=== PATIENT | female | born 1940 | race Caucasian/White ===

== ENCOUNTER → 2019-12-02 13:01 | Outpatient (CLI) | payer MEDICARE, SELFPAY ==
--- NOTE | ~2019-12-02 | DEXA_ITS ---
Bone Density Report Name: Bindu Trujillo Age: 79 Sex: Female Ethnicity: White Date of : 1940 Indication: osteopenia; height loss; postmenopausal Referring Provider: HARI GUILLEN Study: Bone densitometry was performed. Exam Date: December 02, 2019 Accession number: [id number] Bone Density: Region BMD T-score Z-score Classification AP Spine (L1-L4) 0.897 -1.4 1.3 Osteopenia Femoral Neck (Left) 0.774 -0.7 1.6 Normal Total Hip (Left) 0.928 -0.1 1.9 Normal Femoral Neck (Right) 0.778 -0.6 1.6 Normal Total Hip (Right) 0.890 -0.4 1.6 Normal Total Hip Mean 0.909 -0.3 1.8 Normal World Health Organization criteria for BMD impression classify patients as: Normal (T-score at or above -1.0), Osteopenia (T-score between -1.0 and -2.5), or Osteoporosis (T-score at or below -2.5). 10-year Fracture Risk(1): Major Osteoporotic Fracture 10% Hip Fracture 1.6% Reported Risk Factors: [place] (), Neck BMD=0.778, BMI=31.6 (1) FRAX(R) Version 3.08. Fracture probability calculated for an untreated patient. Fracture probability may be lower if the patient has received treatment. Previous Exams: Region Exam Age BMD T-score BMD Change BMD Change Date g/cm2 vs Baseline vs Previous AP Spine(L1-L4) 12/02/2019 79 0.897 -1.4 -0.007 -0.012 09/30/2017 77 0.908 -1.3 0.005 -0.023 09/25/2015 75 0.931 -1.1 0.028* 0.026* 08/03/2012 72 0.905 -1.3 0.002 -0.034* 05/17/2010 69 0.939 -1.0 0.036* 0.006 05/17/2010 69 0.933 -1.0 0.030* 0.044* 05/07/2008 67 0.889 -1.4 -0.015 -0.015 04/04/2006 65 0.903 -1.3 Total Hip(Left) 12/02/2019 79 0.928 -0.1 -0.092* -0.027 09/30/2017 77 0.954 0.1 -0.066* -0.046* 09/25/2015 75 1.000 0.5 -0.020 -0.042* 08/03/2012 72 1.042 0.8 0.022 -0.028* 05/17/2010 69 1.070 1.0 0.050* 0.050* 05/07/2008 67 1.020 0.6 Total Hip(Right) 12/02/2019 79 0.890 -0.4 -0.088* -0.039* 09/30/2017 77 0.929 -0.1 -0.049* -0.017 09/25/2015 75 0.946 0.0 -0.032* -0.057* 08/03/2012 72 1.003 0.5 0.025 -0.071* 05/17/2010 69 1.075 1.1 0.097* 0.097* 05/07/2008 67 0.978 0.3 *Denotes significance at 95% confidence level, [facility] for AP Spine = 0.022 g/cm2, [facility] for Total Hip = 0.027 g/cm2
--- NOTE | ~2019-12-02 | MM_ITS ---
EXAMINATION: MM screening louie BI w tami HISTORY: Screening mammogram TECHNIQUE: Craniocaudal and mediolateral oblique 3-D tomosynthesis images were obtained and synthetic 2-D images were generated. CAD analysis was submitted and interpreted. COMPARISON: Comparison to multiple prior studies sequentially, with oldest reviewed study dated 09/08. BREAST PARENCHYMAL COMPOSITION: There are scattered areas of fibroglandular density. FINDINGS: There is no evidence of suspicious mass, calcification, or architectural distortion to sugg est malignancy in either breast. There has been no suspicious interval change. IMPRESSION: 1. No mammographic evidence of malignancy. 2. Recommend routine screening mammography in one year. BI-RADS Category 1: Negative Reviewed, dictated and finalized at location A. 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
== END ==
PROVIDERS: PCP Family Medicine; Visit Provider Physician Assistant
DX: Z12.31 Encounter for screening mammogram for malignant neoplasm of breast (principal); Z78.0 Asymptomatic menopausal state; M85.88 Other specified disorders of bone density and structure, other site
CPT/HCPCS: 77063; 77067; 77080

== ENCOUNTER 2020-05-04 18:11 | Emergency (ER) | payer MEDICARE, SELFPAY ==
[2020-05-04 18:35] VITALS: BP 151/83; PULSE 72; RESP 16; TEMP 36.8; O2SAT 97
== END 2020-05-04 18:35 | disposition left against medical advice (07) ==
PROVIDERS: PCP Family Medicine
DX: R51 Headache (principal)
CPT/HCPCS: 99199

== ENCOUNTER 2020-05-26 09:40 | Outpatient (CLI) | payer MEDICARE, SELFPAY ==
--- NOTE | ~2020-05-26 | XR_ITS ---
EXAMINATION: XR chest 2V EXAM DATE: 05/26/2020 10:12 INDICATION: Shortness of breath for one month. TECHNIQUE: Frontal and lateral projections of the chest obtained and reviewed. Comparison is made to prior examination from 01/16/2019. FINDINGS: The lungs are clear. There are no pleural effusions. The cardiomediastinal silhouette is within normal limits. There is no pneumothorax suspected. The bones and soft tissues are unremarkab le. IMPRESSION: No acute cardiopulmonary findings. Reviewed, dictated and finalized at location B.
== END 2020-05-26 09:41 | disposition home or self-care (01) ==
LOC: ANHIMG 09:44
PROVIDERS: PCP Family Medicine; Visit Provider Physician Assistant
DX: R06.02 Shortness of breath (principal)
CPT/HCPCS: 71046

== ENCOUNTER 2020-05-29 01:04 | Outpatient (CLI) | payer MEDICARE, SELFPAY ==
[2020-05-29 19:18] LABS: SARS-CoV-2 RNA PCR Negative
== END 2020-05-29 01:05 | disposition home or self-care (01) ==
LOC: ANHCOVIDDT 01:04
PROVIDERS: PCP Family Medicine; Visit Provider Internal Medicine Gastroenterology
DX: Z01.812 Encounter for preprocedural laboratory examination (principal); Z20.828 Contact with and (suspected) exposure to other viral communicable diseases
CPT/HCPCS: 87635; C9803; U0003

== ENCOUNTER 2020-06-01 01:51 | Day surgery (SDC) | payer MEDICARE, SELFPAY ==
[2020-05-21 13:19] VITALS: BMI 30.9
[2020-06-01 11:07] VITALS: BP 126/55; PULSE 93; RESP 20; TEMP 36.8; O2SAT 99
--- NOTE | 2020-06-01 11:10 | SUR.PREOP ---
1110: FRIEND ANTONIO AND PT BOTH NOTIFIED THAT DR BENSON WILL BE ARRIVING AN HOUR LATE. NO CONCERNS
--- NOTE | 2020-06-01 11:33 | P.PNAN_ITS ---
Anes - Initial Pre Proc Eval Procedure: Operation Date: 06/01/20 12:00 Proposed Procedures p Colonoscopy - Carloz Rosales DO Date/Time: 06/01/20 11:33 Surgeon: Carloz Rosales DO Pre Op Diagnosis: bright red blood per rectum Patient Data Age: 80 Gender: F Height: 5 ft Weight: 70.3 kg Last Vital Signs Temp 98.2 F 06/01/20 11:07 Pulse 93 06/01/20 11:07 Resp 20 06/01/20 11:07 BP 126/55 L 06/01/20 11:07 Pulse Ox 99 06/01/20 11:07 Allergies Allergy/AdvReac Type Severity Reaction Status Date / Time codeine Allergy Mild RAPID Verified 06/01/20 11:05 HEART BEAT Home Medications Medication Instructions Recorded Confirmed Type losartan 50 mg PO DAILY 05/21/20 06/01/20 History pravastatin 80 mg PO QPM 05/21/20 06/01/20 History sertraline 100 mg PO DAILY 05/21/20 06/01/20 History Patient hx anesthesia problems: none Family hx anesthesia problems: none [facility] Past Medical History Medical History (Updated 06/01/20 @ 10:36 by Brent Iqbal MD) Anxiety Hyperlipidemia Hypertension Social History Social History Gender identity (if verbalized by the patient): Female Anes - Eval Final PreProcedure Day of Procedure 06/01/20 11:33 Patient weight: normal Heart: regular rate and rhythm Lungs: clear to auscultation Airway: Mallampati scale class II Neurological: alert and oriented Last oral intake: >/= 8 hours ASA classification: II Emergent: no Anesthetic plan: proceed Anesthesia type and monitoring: general GIVS and standard monitoring Informed Consent: The patient's anesthetic plan and its attendant risks and benefits were discussed with the patient/family/POA. Questions were solicited and answers provided to the satisfaction of the patient/family/POA.
[2020-06-01] MEDS: LACTATED RINGERS 1,000 ML 150 ML IV CONT (11:52)
--- NOTE | 2020-06-01 13:02 | P.HP_ITS ---
H&P: HPI History of Present Illness Date/Time: 06/01/20 13:02 Chief complaint: bright red blood per rectum Narrative: Reason for visit colonoscopy. This very pleasant lady's being evaluated at the request of the primary physician. The patient was examined. Impression: He were very pleasant lady with rectal bleeding. This probably perianal in origin. She does have a history adenomatous colon polyps. HTN. HLD. Recommendation: Colonoscopy. History: This very pleasant lady's here for colonoscopy. She complains of rectal bleeding which usually consists of blood on the tissue paper. Constipation, diarrhea, abdominal pain, rectal pain, nausea, vomiting, hematemesis, dysphagia, odynophagia, melena and acholic stools at night. She has a previous history adenomatous colon polyps. Physical examination: General: very pleasant patient in no acute distress. HEENT: Head was normocephalic sclerae is clear mouth without masses neck was supple. Heart: Rate rhythm regular without S3 or S4. Lungs: CTA. Abdomen: Soft with no guarding or rigidity. Bowel sounds were active. Neurologic: Cranial nerves 2 through 12 intact. No focal defects. No clonus. Musculoskeletal system: Revealed no joint tenderness or swelling no muscle atrophy. Extremities: Reveal no significant edema. Skin: Warm and dry with normal turgor. Mental status: intact. Patient is alert and oriented. [facility] Past Medical History Medical History (Updated 06/01/20 @ 13:02 by Carloz Rosales DO) Adenomatous colon polyp Anxiety Hyperlipidemia Hypertension Surgical History Surgical History (Updated 06/01/20 @ 13:02 by Carloz Rosales DO) Hx laparoscopic cholecystectomy Hx of colonoscopy Social History Social History Gender identity (if verbalized by the patient): Female Meds Home Medications and Allergies Home Medications Medication Instructions Recorded Confirmed Type losartan 50 mg PO DAILY 05/21/20 06/01/20 History pravastatin 80 mg PO QPM 05/21/20 06/01/20 History sertraline 100 mg PO DAILY 05/21/20 06/01/20 History Allergies Allergy/AdvReac Type Severity Reaction Status Date / Time codeine Allergy Mild RAPID Verified 06/01/20 11:05 HEART BEAT Vital Signs Vital Signs - 24 hr 06/01/20 11:07 Temperature 36.8 C Pulse Rate 93 Respiratory Rate 20 Blood Pressure 126/55 L Pulse Oximetry 99
[2020-06-01 13:26] VITALS: BP 102/50; PULSE 67; RESP 20; O2SAT 97
[2020-06-01 13:36] VITALS: BP 120/58; PULSE 63; RESP 20; O2SAT 100
[2020-06-01 13:46] VITALS: BP 130/59; PULSE 62; RESP 22; O2SAT 100
== END 2020-06-01 14:19 | disposition home or self-care (01) ==
PROVIDERS: PCP Family Medicine; Visit Provider Internal Medicine Gastroenterology
PROC: 0DJD8ZZ Inspection of Lower Intestinal Tract, Via Natural or Artificial Opening Endoscopic (ICD-10-PCS; CPT 45378; principal; 2020-06-01 12:00)
DX: K62.5 Hemorrhage of anus and rectum (principal); D12.3 Benign neoplasm of transverse colon; K64.8 Other hemorrhoids; K57.30 Diverticulosis of large intestine without perforation or abscess without bleeding; I10 Essential (primary) hypertension; E78.5 Hyperlipidemia, unspecified; Z79.899 Other long term (current) drug therapy
CPT/HCPCS: 45385; 88305; J2704; J7120

== ENCOUNTER → 2020-07-20 10:50 | Outpatient (CLI) | payer MEDICARE, SELFPAY ==
--- NOTE | ~2020-07-20 | XR_ITS ---
EXAMINATION: XR knee RT min 4V DATE: 07/20/2020 12:36 INDICATION: Right knee pain. TECHNIQUE: 4 views of right knee were obtained. COMPARISON: Right knee radiographs 10/10/2010 FINDINGS: Bone alignment is normal. No fracture. There is moderate osteoarthritis of medial compartme nt and mild osteoarthritis of lateral and patellofemoral compartments. There is chondrocalcinosis of the menisci. No knee joint effusion. IMPRESSION: 1. Moderate right knee osteoarthritis. Reviewed, dictated and finalized at location A.
--- NOTE | ~2020-07-20 | XR_ITS ---
EXAMINATION: XR hip RT min 2V DATE: 07/20/2020 12:36 INDICATION: Right hip pain. TECHNIQUE: 2 views of right hip were obtained. COMPARISON: None. FINDINGS: Bone alignment is normal. No fracture. There is moderate right hip osteoarthritis. IMPRESSION: 1. Moderate right hip osteoarthritis. Reviewed, dictated and finalized at location A.
== END ==
PROVIDERS: PCP Family Medicine; Visit Provider Physician Assistant
DX: M25.561 Pain in right knee (principal); M25.551 Pain in right hip; M17.11 Unilateral primary osteoarthritis, right knee; M16.11 Unilateral primary osteoarthritis, right hip
CPT/HCPCS: 73502; 73564

== ENCOUNTER 2020-09-23 07:32 | Outpatient (CLI) | payer MEDICARE, SELFPAY ==
--- NOTE | 2020-09-23 07:47 | ECHO_ITS ---
Patient Info Name: Bindu Trujillo Age: 80 years : 1940 Gender: Female Ht: 60 in Wt: 162 lbs BSA: 1.79 m2 HR: 60 bpm BP: 143 / 83 mmHg Heart Rhythm: Sinus Rhythm Technical Quality: Good Exam Date: 09/23/2020 8:01 AM Exam Location: [facility] Patient Status: Outpatient Admit Date: 09/23/2020 Staff Ordering Physician: Valerio Arana MD Mine Safety Manager: Jeronimo Stern RDCS Attending Provider: Valerio Arana MD Referring Physician: Yasmeen CORNEJO; Exam Type: CA echo doppler color flow Study Info Indications R06.02 - Shortness of breath Complete two-dimensional, color flow and Doppler transthoracic echocardiogram is performed. Strain analysis performed. History/Risk Factors Shortness of breath, HTN. Summary 1. Complete two-dimensional, color flow and Doppler transthoracic echocardiogram is performed. 2. Left ventricular chamber dimension is normal. 3. Left ventricular systolic function is normal, estimated at 65-70%. 4. There is mildly increased left ventricular wall thickness. 5. The left ventricular diastolic function is grade I diastolic dysfunction. 6. E/e' 24 is significantly elevated. 7. Global longitudinal strain is normal at -17.3%. 8. There is moderate aortic valve sclerosis. 9. There is mild aortic valve stenosis with a peak velocity of 250 cm/s, mean gradient of 13 mmHg, and aortic valve area of 1.6 cm2. 10. There is mild aortic valve regurgitation. 11. The mitral valve has moderately calcified annulus. 12. There is trace tricuspid valve regurgitation. 13. No pulmonary hypertension, estimated pulmonary arterial systolic pressure is 29 mmHg. Left Ventricle E/e' 24 is significantly elevated. Global longitudinal strain is normal at -17.3%. Left ventricular chamber dimension is normal. Left ventricular systolic function is normal, estimated at 65-70%. There is mildly increased left ventricular wall thickness. The left ventricular diastolic function is grade I diastolic dysfunction. Right Ventricle Right ventricular systolic function is normal with normal TAPSE at 1.9 cm.. Right ventricular chamber dimension is normal. Left Atria Left atrial chamber dimension is normal. Right Atria Right atrial chamber dimension is normal. Aortic Valve The aortic valve is trileaflet. There is moderate aortic valve sclerosis. There is mild aortic valve stenosis with a peak velocity of 250 cm/s, mean gradient of 13 mmHg, and aortic valve area of 1.6 cm2. There is mild aortic valve regurgitation. Pulmonic Valve There is no pulmonic regurgitation. Mitral Valve The mitral valve has moderately calcified annulus. There is no mitral valve stenosis. There is no mitral valve regurgitation. Tricuspid Valve There is trace tricuspid valve regurgitation. No pulmonary hypertension, estimated pulmonary arterial systolic pressure is 29 mmHg. Pericardium/Pleural There is no pericardial effusion. Inferior Vena Cava Normal inferior vena cava with >50% collapse upon inspiration consistent with normal right atrial pressure, 5 mmHg. Aorta The aortic root size at the sinus of Valsalva is normal. Left Ventricular Outflow Tract Name Value Normal LVOT 2D LVOT Diameter
--- NOTE | 2020-10-15 07:23 | P.PCNPFT_ITS ---
PFT Interpretation This is a pulmonary function test with pre and post-bronchodilator spirometry, plethysmography and diffusing capacity. The test was performed and results interpreted in accordance with the 2019 and 2005 ATS/ERS Task Force guidelines respectively using the Percy/Frandy reference equations. Findings: Spirometry: The pre-bronchodilator FVC is 2.12, 100% predicted. The pre- bronchodilator FEV1 is 1.61 L, 115% predicted. The FEV1:FVC ratio is 76%. The post-bronchodilator FVC is 2.09 L, representing a 1% decrease. The post- bronchodilator FEV1 is 1.63 L, representing a 1% increase. Plethysmography: The total lung capacity is 4.68 L, 119% predicted. The functional residual capacity is 1.76 L, 84% predicted. The residual volume is 1.73 L, 102% predicted. Diffusing capacity: The absolute diffusing capacity is 11.1, 63% predicted. The diffusing capacity corrected for alveolar volume is 3.71, 111% predicted. Impression: The spirometry is normal without evidence of an obstructive abnormality. There is no significant improvement after inhaling a single dose of albuterol. The lung volumes are normal. The absolute diffusing capacity is mildly decreased and the diffusing capacity corrected for alveolar volume is normal. There are no prior studies for comparison
== END 2020-09-23 07:33 | disposition home or self-care (01) ==
LOC: ANHCARD 07:34
PROVIDERS: PCP Family Medicine; Visit Provider Internal Medicine Critical Care Medicine
DX: R06.00 Dyspnea, unspecified (principal); I35.8 Other nonrheumatic aortic valve disorders; I35.0 Nonrheumatic aortic (valve) stenosis; I35.1 Nonrheumatic aortic (valve) insufficiency; I36.1 Nonrheumatic tricuspid (valve) insufficiency; I51.9 Heart disease, unspecified
CPT/HCPCS: 93306; 94060; 94726; 94729

== ENCOUNTER 2020-09-28 08:03 | Outpatient (CLI) | payer MEDICARE, SELFPAY ==
[2020-09-28] MEDS: SODIUM CHLORIDE 0.9% INJ 10 ML VIAL IV PUSH (09:30)
--- NOTE | 2020-10-05 13:54 | WPDPFTINT ---
PFT Interpretation PFT Interpretation: Methacholine challenge testing 09/28/2020 This was performed given cough and MCCARTHY symptoms persisting despite normal pulmonary function testing done 09/23/2020. Progressively increasing concentrations of methacholine were administered in controlled fashion. At level 5, there was a 26% decline in FEV1. This is a positive methacholine challenge test, consistent with bronchoreactivity. Max Nowak MD MSc FACP FCCP
== END 2020-09-28 08:04 | disposition home or self-care (01) ==
PROVIDERS: PCP Family Medicine; Visit Provider Internal Medicine Critical Care Medicine
DX: R06.00 Dyspnea, unspecified (principal)
CPT/HCPCS: 94070; J7674

== ENCOUNTER 2020-11-26 09:42 | Inpatient (IN) | payer MEDICARE, SELFPAY ==
[2020-11-26] VITALS (9 sets, daily range): BP systolic 143–185; BP diastolic 48–72; PULSE 65–90; RESP 11–37; TEMP 36.1–36.4; O2SAT 96–100; BMI 33.5
--- NOTE | ~2020-11-26 | MR_ITS ---
EXAMINATION: MR MRCP wo/w con/w 3D wo ind DATE: 11/27/2020 14:01 INDICATION: Abnormal liver function tests TECHNIQUE: Magnetic resonance imaging (MRI) of the abdomen was performed without and with intravenous contrast. Sequences included coronal T2-weighted SS-FSE ARC, coronal T2-weighted FS SS-FSE, coronal T2-weighted 2D FS FIESTA, Water:Coronal LAVA-Flex, sagittal T2-weighted SS-FSE ARC, axial SSFSE ARC, axial 3D DualEcho, axial DWI B=600, axial T1-weighted LAVA, FAT:Coronal LAVA-Flex, and coronal in and opposed phase LAVA-Flex. Thick-slab T2-weighted FRFSE-XL images were obtained for magnetic resonance cholangiopancreatography (MRCP). Maximum intensity projection 3-D reconstructions of the volumetric data were created by the technologist. Postcontrast sequences included a time course of axial T1-weig hted LAVA, FAT:Coronal LAVA-Flex, coronal in and opposed phase LAVA-Flex, and Water:Coronal LAVA-Flex . COMPARISON: CT, 11/26/2020 CONTRAST: Multihance, 15 cc FINDINGS: ABDOMEN MRI: The gallbladder is surgically absent. The the liver, spleen, pancreas, and adrenal gland s are normal. Cysts of the kidneys measure up to 2.6 cm on the left. There is no hydronephrosis or hy droureter. There are no pathologically enlarged abdominal lymph nodes. No dilated loops of bowel are present. There is a right inguinal hernia containing a short segment of nonobstructed small bowel. Th ere is mild lumbar spondylosis. There is a 1.3 cm cyst of the left ovary. The finding in the lower in ner right breast described on the comparison CT is stable on multiple prior mammograms, consistent wi th a benign finding. ABDOMEN MRCP: There is mild intrahepatic and extrahepatic biliary dilatation. The common bile duct me asures up to 9 mm. No stricture, stone, or mass of the common bile duct is identified. The pancreatic duct is normal in course and caliber. There is a 7 mm cystic lesion in the body of the pancreas whic h communicates with the main pancreatic duct. IMPRESSION: 1. Mild intrahepatic and extra hepatic biliary dilatation, likely due to cholecystectomy state. 2. 7 mm cystic lesion of the pancreatic body and communication with the main pancreatic duct. The dif ferential diagnosis includes pseudocyst, intraductal papillary mucinous neoplasm (IPMN), mucinous cys tic neoplasm (MCN), and the less common serous cystadenoma and neuroendocrine tumor. Correlate for hi story of pancreatitis. Follow-up MRI without and with contrast in two years is recommended. 3. 1.3 cm cyst of the left ovary. Recommend follow-up pelvic ultrasound in 12 months. 4. Right inguinal hernia containing a short segment of nonobstructed small bowel. Reviewed, dictated and finalized at location A. EGE DEAN IMPRESSION: 1. Mild intrahepatic and extra hepatic biliary dilatation, likely due to cholec ystectomy state. 2. 7 mm cystic lesion of the pancreatic body and communication with the main pa ncreatic duct. The differential diagnosis includes pseudocyst, intraductal isabell llary mucinous neoplasm (IPMN), mucinous cystic neoplasm (MCN), and the less co mmon serous cystadenoma and neuroendocrine tumor. Correlate for history of panc reatitis. Follow-up MRI without and with contrast in two years is recommended. 3. 1.3 cm cyst of the left ovary. Recommend follow-up pelvic ultrasound in 12 m onths. 4. Right inguinal hernia containing a short segment of nonobstructed small sarah beth l.
--- NOTE | ~2020-11-26 | CT_ITS ---
EXAMINATION: CTA chest PE protocol DATE: 11/26/2020 11:38 INDICATION: Chest pain. Shortness of breath. TECHNIQUE: Computed tomography (CT) pulmonary angiogram of the chest was performed with 100 mL Omnipa que-350 intravenous contrast. Additional 3D reconstructions utilizing coronal maximum intensity proje ction (MIP) were performed. Automated exposure control and iterative reconstruction technique were em ployed. The dose-length product was 338.65 mGy-cm. COMPARISON: None FINDINGS: Excellent contrast opacification of the pulmonary arteries. There is mild streak artifact from dense contrast in the superior vena cava and right atrium. Mild scattered respiratory motion artifact which does not significantly limit evaluation. No pulmonary embolism. Mild emphysema. Minimal dependent at electasis in the bilateral lower lobes. No pneumonia, pulmonary edema, pleural effusion or pneumothor ax. Heart size is normal. Atherosclerotic coronary artery and aortic valve calcifications. Thoracic a eliu is normal in caliber with no dissection. No pathologically enlarged thoracic lymphadenopathy. Mi ld thoracic spondylosis. IMPRESSION: 1. No pulmonary embolism. 2. Mild emphysema with minimal dependent atelectasis in bilateral lower lobes. Reviewed, dictated and finalized at location A. 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
--- NOTE | ~2020-11-26 | US_ITS ---
EXAMINATION: US venous doppler LE EXAM DATE: 11/27/2020 16:27 INDICATION: Leg swelling, elevated d-dimer. TECHNIQUE: Multiple grayscale, color flow and Doppler images of the lower extremity deep venous syste ms bilaterally were obtained and reviewed. Comparison is made to prior examination from 01/16/2019. FINDINGS: Right side: The right common femoral, femoral and profunda veins demonstrate normal color flow, respi ratory variation, augmentation and compressibility. Compressibility, color flow confirmed within the right popliteal, posterior tibial, peroneal, and greater saphenous veins. Left side: The left common femoral, femoral and profunda veins demonstrate normal color flow, respira tory variation, augmentation and compressibility. Compressibility, color flow confirmed within the l eft popliteal, posterior tibial, peroneal, and greater saphenous veins. IMPRESSION: 1. No lower extremity deep venous thrombosis bilaterally. Reviewed, dictated and finalized at location A. SURGEON
--- NOTE | ~2020-11-26 | CT_ITS ---
EXAMINATION: CT abdomen pelvis wo con DATE: 11/26/2020 12:03 INDICATION: Abdominal pain, vomiting TECHNIQUE: Computed tomography (CT) of the abdomen and pelvis was performed without intravenous contr ast. Automated exposure control and iterative reconstruction technique were employed. Exam dose: 704 .48 mGy-cm total exam DLP. COMPARISON: None. FINDINGS: There is minimal dependent atelectasis at the lower lobes and lingula. There is bilateral p redominantly lower lobe pulmonary small groundglass opacities. Normal heart size. Coronary artery calcification. No pericardial or pleural effusion. There is some mixed asymmetric soft tissue and fat density in the lower medial aspect of the right br east corresponding to similar finding on prior mammograms dating back to 09/28/2016. This is likely a benign hamartoma or lipoma. Status post cholecystectomy. This may account for mild intrahepatic and extra hepatic bile duct promi nence. No hepatic space-occupying mass lesion. No pancreatic mass lesion or calcification. Normal morphology of the adrenal glands. Normal splenic size. 8 mm right renal cyst. 2.4 cm left renal cyst. Smaller left parapelvic renal cysts. No filling defect of the renal collecting systems or ureters or urinary bladder is evident. Calcified fibroid of the u terine fundus. There is extensive calcification of the abdominal aorta. No abdominal aortic aneurysm. No intraperito andrea or retroperitoneal or pelvic mass lesion or adenopathy or ascites. There are numerous diverticula of the sigmoid and descending colon, splenic flexure; no CT evidence o f diverticulitis. The appendix is not visualized. Right inguinal hernia contains a loop of small bowel without apparent strangulation or obstruction. T here are some nonspecific small bowel air-fluid levels which may be due to adynamic ileus or enteriti s. Diffuse idiopathic skeletal hyperostosis of the lower thoracic spine. Prominent degenerative changes noted at the apophyseal joints of the lumbar and lumbosacral area. There is associated grade 1 wilfrido listhesis at L5-S1. Bilateral hip osteoarthritis. IMPRESSION: Right inguinal hernia containing a loop of small bowel Scattered small bowel air-fluid levels without abnormal dilatation suggesting enteritis or mild adyna mateo ileus Status post cholecystectomy Status post appendectomy Bilateral renal cysts Diverticulosis of the left colon; no CT evidence of diverticulitis Probable lipoma or hamartoma of the lower inner quadrant of the right breast Reviewed, dictated and finalized at Location A. Reviewed, dictated and finalized at location B. 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
--- NOTE | 2020-11-26 09:57 | ECG_ITS ---
Measurements Intervals [place] Rate: 84 P: 47 [place]: 161 QRS: 64 QRSD: 121 T: 3 QT: 388 QTc: 461 Interpretive Statements SINUS RHYTHM RIGHT BUNDLE BRANCH BLOCK BASELINE ARTIFACT- I, II, AVR, AVL, AVF ABNORMAL ECG Electronically Signed On 11-26-2020 10:04:18 ROTOGRAVURE PRESS OPERATOR by Brandon Roberto D.O.
[2020-11-26 10:46] LABS: Basophils Percent Auto 0.6 % (0.2-1.2); Eosinophils Absolute Auto 0.1 K/mm3 (0-0.3); Hematocrit 43.3 % (37.0-47.0); Hemoglobin 14.4 g/dL (12.0-15.0); Immature Granulocyte Absolute 0.02 K/mm3 (0.00-0.031); Immature Granulocyte Percent A 0.3 % (0-0.5); Lymphocytes Absolute Auto 0.55 K/mm3 (0.9-3.2); Lymphocytes Percent Auto 7.6 % (18.3-44.2); Mean Corpuscular HGB Conc 33.3 g/dl (32-36); Mean Corpuscular Hemoglobin 30.4 pg (26-34); Mean Corpuscular Volume 91.4 fl (80-100); Mean Platelet Volume 10.8 fl (7.4-10.4); Monocytes Absolute Auto 0.7 K/mm3 (0.1-0.6); Monocytes Percent Auto 9.7 % (2.6-8.5); Neutrophils Absolute Auto 5.9 K/mm3 (1.3-6.7); Neutrophils Percent Auto 80.8 % (45.5-73.1); Platelet Count Result 188 k/mm3 (150-375); Red Blood Count 4.74 M/mm3 (4.2-5.4); White Blood Count 7.2 K/mm3 (4.5-10.0)
[2020-11-26 10:55] LABS: Prothrombin Time 13.6 Seconds (11.1-14.7)
[2020-11-26 10:56] LABS: Partial Thromboplastin Time 28.1 SECONDS (22.3-36.8)
[2020-11-26 11:04] LABS: Alanine Aminotransferase 279 U/L (4-35); Albumin Level 4.2 g/dL (3.5-5.1); Alkaline Phosphatase 76 U/L (38-126); Anion Gap 7 mmol/L (8-16); Aspartate Amino Transferase 498 U/L (14-36); Bilirubin,Total 1.7 mg/dL (0.2-1.3); Blood Urea Nitrogen 21 mg/dL (7-17); Calcium 9.4 mg/dL (8.4-10.2); Carbon Dioxide 27 mmol/L (22-30); Chloride 107 mmol/L (98-107); Estimated CRCL calculation 34 ml/min; Estimated Glomerular Filt Rate 48; Glucose 111 mg/dL (65-105); Potassium 4.3 mmol/L (3.4-5.0); Sodium 141 mmol/L (137-145)
[2020-11-26 11:13] LABS: NT Pro B Type Natriuretic Pept 283 PG/ML (5-100); Troponin I < 0.012 ng/mL (0.000-0.034)
[2020-11-26] MEDS: LIDOCAINE HCL 2% VISC SOLN 15 ML UDC 20 ML PO (11:17)
[2020-11-26] MEDS: PANTOPRAZOLE SODIUM IV 40 MG VIAL IV PUSH ×3 (11:17→20:07)
[2020-11-26] MEDS: SODIUM CHLORIDE 0.9% IV 500 ML 999 ML IV CONT (11:17)
[2020-11-26] MEDS: MAG HYDROX/AL HYDROX/SIMETH 30 ML UDC PO (11:18)
[2020-11-26 11:31] LABS: Add Urine Microscopic? YES; Appearance Urine Clear (Clear); Bacteria Urine Trace /hpf; Bilirubin Urine Negative (Negative); Blood Urine 1+ (Negative); Color Urine Yellow (Yellow); Glucose Urine UA Negative (Negative); Ketones Urine Negative (Negative); Leukocyte Esterase Ur 1+ LEU/UL (Negative); Mucus Urine Rare /lpf; Nitrate Urine Negative (Negative); Protein Urine Negative (Negative); Specific Grav Ur 1.013 (1.001-1.035); Squamous Epithelial Cell Urine Few /hpf (Few)
--- NOTE | 2020-11-26 11:33 | ED.GENADULT ---
HPI - General Adult General Chief complaint: Chest Pain <Armando Zazueta PA-C - Last Filed: 11/26/20 13:31> Stated complaint: congestion, heart burn <DELIO Molina Last Filed: 11/26/20 13:31> Time Seen by Provider: 11/26/20 09:45 <DELIO Molina Last Filed: 11/26/20 13:31> Source: patient and family <DELIO Molina Last Filed: 11/26/20 13:31> Mode of arrival: ambulatory <Armando Zazueta PA-C - Last Filed: 11/26/20 13:31> Limitations: no limitations <DELIO Molina Last Filed: 11/26/20 13:31> History of Present Illness HPI narrative: Patient is a 80-year-old female who presents with an episode of epigastric abdominal pain began last night persisted into this morning and still is present patient did eat barbecue last night and upon going to bed last night developed the discomfort also had some associated nausea and anxiety with that. Patient today notes that she continues to have the pain had a panic attack this morning is feeling nauseous and short of breath at this time patient denies any vomiting diarrhea or other complaints or concerns or recent illness presents in no distress has not had anything for her symptoms <Armando Zazueta PA-C - Last Filed: 11/26/20 13:31> Related Data Home medications: Home Medications Medication Instructions Recorded Confirmed ascorbic acid (vitamin C) 1,000 mg 1,000 mg PO Q12H 07/27/20 10/23/20 tablet,extended release calcium carb,cit 315 mg-vitamin D3 tablet PO .twice tablet 07/27/20 10/23/20 250 unit-phytosterols 200 mg tablet cyanocobalamin (vitamin B-12) 1,000 mcg PO DAILY 07/27/20 10/23/20 1,000 mcg tablet diclofenac sodium 75 mg 75 mg PO BID 07/27/20 10/23/20 tablet,delayed release lorazepam 0.5 mg tablet 0.5 mg PO DAILY PRN 07/27/20 10/23/20 losartan 50 mg tablet 50 mg PO DAILY 07/27/20 10/23/20 multivitamin 1 tablet PO DAILY 07/27/20 10/23/20 pantoprazole 40 mg tablet,delayed 40 mg PO QAM 07/27/20 10/23/20 release pravastatin 80 mg tablet 80 mg PO DAILY 07/27/20 10/23/20 sertraline 100 mg tablet 100 mg PO DAILY 07/27/20 10/23/20 vit cap PO DAILY cap 07/27/20 10/23/20 C,E,zinc,Sb-dsiyr-2-lutein-zeaxanthin 250 mg-2.5 mg-0.5 mg capsule <Armando Zazueta PA-C - Last Filed: 11/26/20 13:31> Allergies/adverse reactions: Allergies Allergy/AdvReac Type Severity Reaction Status Date / Time codeine Allergy Mild RAPID Verified 11/26/20 14:04 HEART BEAT <Armando Zazueta PA-C - Last Filed: 11/26/20 13:31> Review of Systems Review of Systems: All systems reviewed & are unremarkable except as noted in HPI and below <Armando Zazueta PA-C - Last Filed: 11/26/20 13:31> [facility] Past Medical History Medical History: Medical History (Updated 11/26/20 @ 14:51 by Maine Fields PA-C) Adenomatous colon polyp Anxiety Depression Diverticula, colon Facial basal cell cancer History of deep venous thrombosis 50+ years ago around the time of . 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 Osteoarthritis <Armando Zazueta PA-C - Last Filed: 11/26/20 13:31> Surgical History Surgical History: Surgical History (Updated 11/26/20 @ 14:48 by Maine Fields PA-C) History of appendectomy History of arthroplasty of left knee History of bilateral cataract extraction History of colonoscopy Benign colon polyp, internal hemorrhoids, and diverticulosis coli noted on endoscopy on 05/28/[address] Rosales. History of laparoscopic cholecystectomy History of left breast biopsy With benign pathology. History of tonsillectomy Status post surgical removal of malignant neoplasm of skin Excision of melanoma from the left naris. <Armando Zazueta PA-C - Last Filed: 11/26/20 13:31> Family History Family History: Family History (Updated 11/26/20 @ 16:09 by Inez Scruggs RN) Sibling
[2020-11-26 11:38] LABS: Lipase 17215 U/L (23-300)
[2020-11-26 13:22] LABS: Cholesterol 220 mg/dL (0-200); HDL Direct 66 mg/dL; Magnesium 1.9 mg/dL (1.6-2.3); Phosphorus 3.7 mg/dL (2.5-4.5); Triglycerides 175 mg/dL (<150)
[2020-11-26 13:33] LABS: LDL Cholesterol Direct 125 mg/dL
[2020-11-26 14:04] LABS: Troponin I < 0.012 ng/mL (0.000-0.034)
--- NOTE | 2020-11-26 15:30 | PM.IMHP ---
H&P: HPI History of Present Illness Date/Time: 11/26/20 15:30 Chief Complaint: Epigastric pain. Narrative: This is a pleasant 80-year-old female with hypertension, hyperlipidemia, and anxiety presented to the emergency department earlier today from home with complaints of epigastric pain. Last evening not long after eating barbecue she developed pretty significant nausea and epigastric discomfort ?like I had when I had gallbladder attacks 50 years ago, both which persisted throughout the night. This morning she did have a small amount of emesis that she describes as ?slimy and yellow? and the nausea improved however she has continued to have this epigastric discomfort. Associated symptoms include cold sweats and loose stools, but she goes on to say that that is a chronic thing for her. LFTs and lipase were markedly elevated on arrival to the emergency department, and she is being admitted in this setting. She has no history of pancreatitis and is status post cholecystectomy approximately 50 years ago. Very seldom will she have an alcoholic beverage, and non recently that she can think of. She has not had any recent changes in medications. She denies GERD and indigestion type symptoms. No history of peptic ulcers. She also denies hematemesis, melena, and hematochezia. No fever, chest pain, or shortness of breath. She denies jaundice and pruritus. Review of Systems Review of Systems: Narrative: Twelve systems were reviewed with pertinent positives and negatives as per HPI. She denies recent cold and flu symptoms. No chest pain. She has been having issues with dyspnea on exertion since summer 2019, and is being followed by pulmonology and cardiology. She was diagnosed with mild asthma for which she has a rescue inhaler however tends to use it more when the weather is warmer and she is out walking her dog. No exertional chest pain. She denies syncope and near-syncope. Except as documented, all other systems were reviewed and are negative. [facility] Past Medical History Medical History (Updated 11/26/20 @ 14:51 by Maine Fields PA-C) Adenomatous colon polyp Anxiety Depression Diverticula, colon Facial basal cell cancer History of deep venous thrombosis 50+ years ago around the time of . 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 Osteoarthritis Surgical History Surgical History (Updated 11/26/20 @ 14:48 by Maine Fields PA-C) History of appendectomy History of arthroplasty of left knee History of bilateral cataract extraction History of colonoscopy Benign colon polyp, internal hemorrhoids, and diverticulosis coli noted on endoscopy on 05/28/[address] Rosales. History of laparoscopic cholecystectomy History of left breast biopsy With benign pathology. History of tonsillectomy Status post surgical removal of malignant neoplasm of skin Excision of melanoma from the left naris. Family History Family History Sibling Cancer Hypertension Father Peripheral vascular complication Social History Social History (Updated 11/26/20 @ 20:35 by Maine Fields PA-C) Social History: Patient is and lives in [place] with a friend. 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 No alcohol or illicit substance abuse. She designates her daughter, Thierno Yanez, as her surrogate decision maker and she wishes to be a full code. Smoking packs per day: 2 Smoking cigarettes per day: 40.0 Years smoked: 20 Smoking pack-years: 40.00 Smoking status: Former smoker Tobacco type: cigarettes Additional smoking assessment comments: started at age 20 and stopped age 40 Alcohol intake: never Substance use: never Gender identity (if verbalized by the patient): Female Spiritual care concerns: No Meds Home Medications and Allergies Home Med
--- NOTE | 2020-11-26 15:50 | PC.NURSE ---
This patient, Bindu Trujillo, was admitted to [facility] [place] Surg Room 312-01. Patient/family oriented to hospital policies and general routines including ID bracelet, bed and alarms, visiting hours, pain management, procedures, bathroom and other care routines, personal items, smoking policy, room service/diet, and visiting hours. Report received from Astrid HULL. Information on how to activate the Rapid Response Team has been discussed. Patient/Family are encouraged to report perceived risks to care and to ask questions if they do not understand what they are told or what they should do.
[2020-11-26] MEDS: LACTATED RINGERS 1,000 ML 150 ML IV CONT (16:40)
[2020-11-26] MEDS: LACTATED RINGERS 1,000 ML 100 ML IV CONT (23:06)
--- NOTE | 2020-11-27 05:03 | WPDGIPROGNO ---
Subjective Date/time seen: 11/27/20 05:03 Objective Data Vital Signs Vital Signs: Vital Signs - 24 hr 11/26/20 09:50 11/26/20 09:54 11/26/20 11:03 Temperature 36.4 C L Pulse Rate 90 88 68 Respiratory Rate 18 22 H Blood Pressure 143/58 H 150/60 H Pulse Oximetry 97 100 11/26/20 12:40 11/26/20 13:43 11/26/20 15:09 Temperature Pulse Rate 71 65 67 Respiratory Rate 19 11 L 18 Blood Pressure 163/63 H 168/72 H 160/48 H Pulse Oximetry 97 100 98 11/26/20 15:37 11/26/20 16:00 11/26/20 22:00 Temperature 36.1 C L 36.4 C Pulse Rate 69 69 65 Respiratory Rate 37 H 16 18 Blood Pressure 156/57 H 185/60 H 148/50 H Pulse Oximetry 98 99 96 Intake/Output Intake/Output: Intake & Output 11/24/20 11/25/20 11/26/20 11/27/20 23:59 23:59 23:59 23:59 Intake Total 550 Output Total 300 Balance 250 Meds/Results Medications: Active Medications Generic Name Dose Route Start Last Admin Trade Name Freq PRN Reason Stop Dose Admin Albuterol 1 puff 11/26/20 20:45 Albuterol Sulfate (*Sp) Aerosol 1 Puff INHALATION Q4-6H PRN shortness of breath or wheezing Lactated Ringer's 1,000 mls @ 100 mls/hr 11/26/20 20:45 11/26/20 23:06 Lr - Lactated Ringers Iv IV CONT 100 mls/hr .Q10H LAURA Administration Losartan Potassium 50 mg 11/27/20 09:00 Losartan Potassium 50 Mg Tablet PO DAILY LAURA Ondansetron HCl 4 mg 11/26/20 13:32 Ondansetron Inj 4 Mg/2 Ml Vial IV PUSH Q4H PRN Nausea Pantoprazole Sodium 40 mg 11/26/20 21:00 11/26/20 20:07 Pantoprazole Sodium Iv 40 Mg Vial IV PUSH 40 mg Q12HR LAURA Administration Sertraline HCl 100 mg 11/27/20 09:00 Sertraline Hcl 50 Mg Tablet PO DAILY [facility] Radiology Results: ITS Impressions Chest CTA 11/26/20 11:41 IMPRESSION: 1. No pulmonary embolism. 2. Mild emphysema with minimal dependent atelectasis in bilateral lower lobes. Abdomen/Pelvis CT 11/26/20 12:11 IMPRESSION: Right inguinal hernia containing a loop of small bowel Scattered small bowel air-fluid levels without abnormal dilatation suggesting enteritis or mild adynamic ileus Status post cholecystectomy Status post appendectomy Bilateral renal cysts Diverticulosis of the left colon; no CT evidence of diverticulitis Probable lipoma or hamartoma of the lower inner quadrant of the right breast Labs Labs: Laboratory Results - last 24 hr 11/26/20 11/26/20 11/26/20 10:31 10:31 10:31 WBC 7.2 RBC 4.74 Hgb 14.4 Hct 43.3 MCV 91.4 MCH 30.4 MCHC 33.3 RDW 13.0 Plt Count 188 MPV 10.8 H Immature Gran % (Auto) 0.3 Neut % (Auto) 80.8 H Lymph % (Auto) 7.6 L [place] % (Auto) 9.7 H Eos % (Auto) 1.0 Baso % (Auto) 0.6 Lymph # (Auto) 0.55 L [place] # (Auto) 0.7 H Eos # (Auto) 0.1 Baso # (Auto) 0.0 Abs Immat Gran (auto) 0.02 Absolute Neuts (auto) 5.9 Absolute Nucleated RBC 0.0 Nucleated RBC % 0.0 PT 13.6 INR 1.0 APTT 28.1 D-Dimer 0.70 H Sodium 141 Potassium 4.3 Chloride 107 Carbon Dioxide 27 Anion Gap 7 L BUN 21 H Creatinine 1.10 H Estim Creat Clear Calc 34 Estimated GFR 48 L Glucose 111 H Calcium 9.4 Phosphorus Magnesium Total Bilirubin 1.7 H AST 498 H ALT 279 H Alkaline Phosphatase 76 Troponin I < 0.012 NT-Pro-B Natriuret Pep 283 H Total Protein 8.0 Albumin 4.2 Triglycerides Cholesterol LDL Cholesterol Direct HDL Direct Lipase 26794 H Urine Color Urine Appearance Urine pH Ur Specific Simpson Urine Protein Urine Glucose (UA) Urine Ketones Ur Blood (Man) Urine Nitrate Urine Bilirubin Urine Urobilinogen Leukocyte Esterase Rfl Urine RBC Urine WBC Ur Squamous Epith Cells Urine Bacteria Hyaline Casts Urine Mucus 11/26/20 11/26/20 11/26/20 10:31 11:03 13:31 WBC RBC Hgb Hc
--- NOTE | 2020-11-27 05:04 | WPDGICN ---
GI Consult Note Consult date/time: Reason for consultation abdominal pain and possible pancreatitis. He area very pleasant lady seen in consultation request of the hospitalist. The patient examined chart reviewed. Impression: Here very pleasant lady with severe abdominal pain that is resolved. She has elevated liver enzymes and lipase. Patient certainly may have underlying pancreatitis possibly a biliary origin. Would consider choledocholithiasis. Patient does have a right inguinal hernia. Sometimes small bowel obstruction can be responsible for an elevated lipase. Patient does have a history of diarrhea for the last 4-6 weeks. This may be secondary to underlying infectious process. This may be a component of underlying IBS. Heart murmur. Possible questionable AI. History of adenomatous colon polyps. History of diverticulosis coli. Right inguinal hernia. Breast lesion. Anxiety/depression. COPD. Skin cancer basal cell a melanoma. History DVT. HLD. HTN. Macular degeneration. Osteoarthritis. Recommendation: Will begin clear liquids. Await repeat laboratory studies. MRCP. Echocardiogram. Stool studies. Further recommendations will be forthcoming. Liver workup. Patient will need mammography. Will defer this to the hospitalist. CT imaging of the chest revealed History: This very pleasant lady is well known to myself. She has a history of diverticulosis coli and adenomatous colon polyps. Patient was fine until the day of admission when she developed severe epigastric abdominal pain. The pain is described as burning in nature without radiation. She reported nausea and vomiting, but no hematemesis. She normally denies any indigestion, heartburn, dysphagia or odynophagia. Fever, chills or night sweats are denied. She denies any scleral icterus, jaundice, bilirubin area or acholic stools. Last 6 weeks the patient has been having diarrhea. It usually occurs in the morning and may last all day. Exist watery diarrhea. Hematochezia and melena are denied. Significant weight loss night. The patient denies any significant chest pain, shortness of breath, dyspnea exertion, palpitations, hemoptysis. She has been reporting a dry cough recently. Patient presented emergency room. Her LFTs were elevated. She her lipase was over 17,000. CT imaging was obtained. CT imaging of the abdomen pelvis revealed: IMPRESSION: Right inguinal hernia containing a loop of small bowel Scattered small bowel air-fluid levels without abnormal dilatation suggesting enteritis or mild adynamic ileus Status post cholecystectomy Status post appendectomy Bilateral renal cysts Diverticulosis of the left colon; no CT evidence of diverticulitis Probable lipoma or hamartoma of the lower inner quadrant of the right breast CT imaging the chest revealed: IMPRESSION: 1. No pulmonary embolism. 2. Mild emphysema with minimal dependent atelectasis in bilateral lower lobes. Physical examination: General: very pleasant patient in no acute distress. HEENT: Head was normocephalic sclerae is clear mouth without masses neck was supple. Heart: Rate rhythm regular without S3 or S4. Systolic murmur 2nd right intercostal space. There may be a short diastolic murmur. Question AI. It radiates to the carotid. Lungs: CTA. Abdomen: Soft with no guarding or rigidity. Bowel sounds were active. Neurologic: Cranial nerves 2 through 12 intact. No focal defects. No clonus. Musculoskeletal system: Revealed no joint tenderness or swelling no muscle atrophy. Extremities: Reveal no significant edema. Skin: Warm and dry with normal turgor. Mental status: intact. Patient is alert and oriented. Thank you for allowing me to participate in care of this most and patient. Review of Systems Review of Systems: All systems reviewed & are unremarkable except as noted in HPI and below [facility] Past Medical History Medical History (Updated 11/27/20 @ 04:5
[2020-11-27 06:00] VITALS: BP 131/51; PULSE 69; RESP 18; TEMP 36.6; O2SAT 98
[2020-11-27] MEDS: LACTATED RINGERS 1,000 ML 100 ML IV CONT (06:24)
[2020-11-27 06:44] LABS: Basophils Percent Auto 0.5 % (0.2-1.2); Eosinophils Absolute Auto 0.1 K/mm3 (0-0.3); Eosinophils Percent Auto 1.6 % (0-4.4); Hematocrit 39.2 % (37.0-47.0); Immature Granulocyte Absolute 0.02 K/mm3 (0.00-0.031); Immature Granulocyte Percent A 0.3 % (0-0.5); Lymphocytes Absolute Auto 0.96 K/mm3 (0.9-3.2); Mean Corpuscular HGB Conc 33.2 g/dl (32-36); Mean Corpuscular Hemoglobin 29.9 pg (26-34); Mean Corpuscular Volume 90.1 fl (80-100); Mean Platelet Volume 10.6 fl (7.4-10.4); Monocytes Absolute Auto 0.7 K/mm3 (0.1-0.6); Monocytes Percent Auto 8.5 % (2.6-8.5); Neutrophils Absolute Auto 6.2 K/mm3 (1.3-6.7); Neutrophils Percent Auto 77.1 % (45.5-73.1); Platelet Count Result 172 k/mm3 (150-375); Red Blood Count 4.35 M/mm3 (4.2-5.4); Red Cell Distribution Width 13.1 % (11.5-14.5)
[2020-11-27 06:52] LABS: Magnesium 1.9 mg/dL (1.6-2.3); Phosphorus 3.9 mg/dL (2.5-4.5)
[2020-11-27 06:56] LABS: Alanine Aminotransferase 236 U/L (4-35); Albumin Level 3.7 g/dL (3.5-5.1); Alkaline Phosphatase 100 U/L (38-126); Anion Gap 10 mmol/L (8-16); Aspartate Amino Transferase 228 U/L (14-36); Bilirubin,Total 1.1 mg/dL (0.2-1.3); Blood Urea Nitrogen 18 mg/dL (7-17); Calcium 8.7 mg/dL (8.4-10.2); Carbon Dioxide 25 mmol/L (22-30); Chloride 106 mmol/L (98-107); Estimated CRCL calculation 37 ml/min; Estimated Glomerular Filt Rate 53; Glucose 86 mg/dL (65-105); Lipase 1860 U/L (23-300); Potassium 4.2 mmol/L (3.4-5.0); Sodium 141 mmol/L (137-145)
[2020-11-27 07:00] LABS: Alanine Aminotransferase 234 U/L (4-35); Albumin Level 3.7 g/dL (3.5-5.1); Alkaline Phosphatase 101 U/L (38-126); Anion Gap 2 mmol/L (8-16); Aspartate Amino Transferase 216 U/L (14-36); Bilirubin,Total 1.2 mg/dL (0.2-1.3); Blood Urea Nitrogen 18 mg/dL (7-17); CRP 3.7 mg/dL (<1.0); Calcium 8.9 mg/dL (8.4-10.2); Carbon Dioxide 27 mmol/L (22-30); Chloride 111 mmol/L (98-107); Estimated CRCL calculation 37 ml/min; Estimated Glomerular Filt Rate 53; Glucose 87 mg/dL (65-105); Phosphorus 3.8 mg/dL (2.5-4.5); Sodium 140 mmol/L (137-145)
[2020-11-27 07:41] LABS: Free T4 Free Thyroxine 0.85 ng/mL (0.78-2.19)
[2020-11-27 07:56] LABS: Hepatitis B Surface Antigen Negative (Negative)
[2020-11-27 08:13] LABS: Hepatitis B Surface Anti Res Negative
[2020-11-27] MEDS: LOSARTAN POTASSIUM 50 MG TABLET PO (09:07)
[2020-11-27] MEDS: SERTRALINE HCL 50 MG TABLET 100 MG PO (09:08)
[2020-11-27 09:10] VITALS: O2SAT 98
[2020-11-27] MEDS: PANTOPRAZOLE 40 MG TABLET PO ×2 (09:10→20:55)
--- NOTE | 2020-11-27 13:08 | PM.IMPN ---
Progress Note: A&P Assessment and Plan (1) Acute pancreatitis: Code(s): K85.90 - Acute pancreatitis without necrosis or infection, unspecified Status: Acute Assessment and Plan: Lipase has improved today down to 1800 -CT of the abdomen pelvis does not show any pancreatic abnormalities -await MRCP -patient's pain is much better and is tolerating clear liquids. Will add lactose free diet -she does not drink alcohol and no medications that frequently cause pancreatitis is noted on her med list -she had a gallbladder out many years ago although it is still possible that she threw a stone because of the quick improvement of her lipase -GI has been consulted, JOSE pending (2) Elevated liver enzymes: Code(s): R74.8 - Abnormal levels of other serum enzymes Status: Acute Assessment and Plan: Likely due to above -most the hepatitis panel is back and negative but awaiting hepatitis B results -CT without abnormality (3) Elevated serum creatinine: Code(s): R79.89 - Other specified abnormal findings of blood chemistry Status: Acute Assessment and Plan: Resolved (4) Abnormal CT of the abdomen: Code(s): R93.5 - Abnormal findings on diagnostic imaging of other abdominal regions, including retroperitoneum Status: Acute Assessment and Plan: Patient has probable lipoma or hemartoma of the breast on CT imaging. I went back to talk to her about this but was in MRI. -Last mamogram 12/02/19 without evidence of malignancy BIRAD 1 so she will likely have her next mammogram soon. I will let her know to be sure and get this. (5) Hypertension: Code(s): I10 - Essential (primary) hypertension Status: Acute Assessment and Plan: Last bp 131/51 -continue losartan (6) Hyperlipidemia: Code(s): E78.5 - Hyperlipidemia, unspecified Status: Acute Assessment and Plan: statin held (7) Asthma: Qualifiers: Asthma severity: unspecified severity Asthma persistence: unspecified Asthma complication type: unspecified Qualified Code(s): J45.909 - Unspecified asthma, uncomplicated Code(s): J45.909 - Unspecified asthma, uncomplicated Status: Acute Assessment and Plan: No acute problems -albuterol available PRN Time Spent With Patient Time with patient: 25 - 35 minutes Subjective Date/time seen: 11/27/20 13:08 Interval history: Pt is a 80-year-old female here for pancreatitis. Patient seen today is doing great. She says her abdominal pain has resolved and she has been eating and drinking clear liquids without issue. She is lactose intolerant so she is unable to drink the Ensure Clear. Pt denies nausea, vomiting, fevers, chills, constipation, diarrhea, chest pain, sob, or abdominal pain. She had a normal bowel movement today. Review of Systems Review of Systems: All systems reviewed & are unremarkable except as noted in HPI and below Exam Narrative: Exam Narrative: General: Well developed well nourished patient in NAD walking aorund the room HEENT: normocephalic Neck: supple Neuro: Alert and oriented x4 CV:RRR with 3/6 murmur right 2nd ICS (hx of mod ) Resp:CTA Abd: Soft, non distended. very slight pain to palpation to epigastric area. Positive bowel sounds Extremities: chronic swelling to the left leg. no edema to the right leg. No erythema or warmth Objective Data Vital Signs Vital Signs: Vital Signs - 24 hr 11/26/20 13:43 11/26/20 15:09 11/26/20 15:37 Temperature Pulse Rate 65 67 69 Respiratory Rate 11 L 18 37 H Blood Pressure 168/72 H 160/48 H 156/57 H Pulse Oximetry 100 98 98 11/26/20 16:00 11/26/20 22:00 11/27/20 06:00 Temperature 97.0 F L 97.6 F 97.8 F Pulse Rate 69 65 69 Respiratory Rate 16 18 18 Blood Pressure 185/60 H 148/50 H 131/51 L Pulse Oximetry 99 96 98 11/27/20 09:10 Temperature Pulse Rate Respiratory Rate Blood Pressu
[2020-11-27 14:00] VITALS: BP 160/60; PULSE 73; RESP 16; TEMP 36.6; O2SAT 100
[2020-11-27 21:31] VITALS: BP 114/40; PULSE 96; RESP 16; TEMP 36.4; O2SAT 97
[2020-11-28 06:00] VITALS: BP 128/65; PULSE 65; RESP 16; TEMP 36.5; O2SAT 98
[2020-11-28 06:30] LABS: Alanine Aminotransferase 147 U/L (4-35); Albumin Level 3.5 g/dL (3.5-5.1); Alkaline Phosphatase 87 U/L (38-126); Anion Gap 2 mmol/L (8-16); Aspartate Amino Transferase 94 U/L (14-36); Bilirubin,Total 1.1 mg/dL (0.2-1.3); Blood Urea Nitrogen 15 mg/dL (7-17); Calcium 8.7 mg/dL (8.4-10.2); Carbon Dioxide 29 mmol/L (22-30); Chloride 107 mmol/L (98-107); Estimated CRCL calculation 40 ml/min; Estimated Glomerular Filt Rate 60; Glucose 99 mg/dL (65-105); Lipase 365 U/L (23-300); Sodium 138 mmol/L (137-145)
[2020-11-28 06:37] LABS: Hematocrit 39.3 % (37.0-47.0); Mean Corpuscular HGB Conc 33.1 g/dl (32-36); Mean Corpuscular Hemoglobin 30.1 pg (26-34); Mean Platelet Volume 10.9 fl (7.4-10.4); Platelet Count Result 173 k/mm3 (150-375); Red Blood Count 4.32 M/mm3 (4.2-5.4); White Blood Count 7.8 K/mm3 (4.5-10.0)
[2020-11-28 07:02] LABS: Vitamin D 25 Hydroxy 33.2 ng/mL
[2020-11-28] MEDS: PANTOPRAZOLE 40 MG TABLET PO (08:44)
[2020-11-28] MEDS: LOSARTAN POTASSIUM 50 MG TABLET PO (08:44)
[2020-11-28] MEDS: SERTRALINE HCL 50 MG TABLET 100 MG PO (08:44)
--- NOTE | 2020-11-28 10:18 | WPDGIPROGNO ---
Progress Note: A&P Assessment and Plan (1) Acute pancreatitis: Code(s): K85.90 - Acute pancreatitis without necrosis or infection, unspecified Status: Acute Assessment and Plan: much better, liver enzymes trending down and no more pain or nausea tolerating diet, ok to advance to low fat ok to go home and follow-up with Dr Rosales in 2-3 weeks MRCP reviewed with mild intrahepatic and extra hepatic biliary dilatation, likely due to cholecystectomy state and 7 mm cystic lesion of the pancreatic body and communication with the main pancreatic duct. The differential diagnosis includes pseudocyst, intraductal papillary mucinous neoplasm (IPMN), mucinous cystic neoplasm (MCN) She may need EUS of pancreas as outpatient, patient to contact Dr Rosales for outpatient referral. (2) Pancreatic cyst: Code(s): K86.2 - Cyst of pancreas Status: Acute (3) Abnormal CT of the abdomen: Code(s): R93.5 - Abnormal findings on diagnostic imaging of other abdominal regions, including retroperitoneum Status: Acute Assessment and Plan: MRCP reviewed (4) Right inguinal hernia: Code(s): K40.90 - Unilateral inguinal hernia, without obstruction or gangrene, not specified as recurrent Status: Acute Assessment and Plan: no pain and no SBO, probably will need surgical referral at some point (5) Elevated liver enzymes: Code(s): R74.8 - Abnormal levels of other serum enzymes Status: Acute Assessment and Plan: trending down Subjective Date/time seen: 11/28/20 10:18 Interval history: abdominal pain resolved, no more nausea and tolerated diet. She would like to go home Review of Systems Review of Systems: All systems reviewed & are unremarkable except as noted in HPI and below Exam Const: General: comfortable and no acute distress HENMT: General nose exam: Normal nares present Eyes: General: appearance normal, both eyes and all related structures Neck: Neck: no JVD Resp: Auscultation: clear to auscultation bilaterally Cardio: Rate: regular rate Rhythm: regular rhythm GI: Inspection: non-distended GI Palp: Yes Soft to palpation and No Tenderness to palpation present (GI) Auscultation: normal bowel sounds Other: small right inguinal hernia, no pain Skin: General skin exam: normal color Neuro: Speech: normal speech Motor exam (neuro): Normal motor muscle tone present throughout Extrem: General: normal to inspection Psych: Mental Status: mental status grossly normal Objective Data Vital Signs Vital Signs: Vital Signs - 24 hr 11/27/20 14:00 11/27/20 21:31 11/28/20 06:00 Temperature 97.8 F 97.5 F L 97.7 F Pulse Rate 73 96 65 Respiratory Rate 16 16 16 Blood Pressure 160/60 H 114/40 L 128/65 Pulse Oximetry 100 97 98 Intake/Output Intake/Output: Intake & Output 11/25/20 11/26/20 11/27/20 11/28/20 23:59 23:59 23:59 23:59 Intake Total 550 2320 450 Output Total 300 150 Balance 250 2170 450 Meds/Results Medications: Active Medications Generic Name Dose Route Start Last Admin Trade Name Freq PRN Reason Stop Dose Admin Albuterol 1 puff 11/26/20 20:45 Albuterol Sulfate (*Sp) Aerosol 1 Puff INHALATION Q4-6H PRN shortness of breath or wheezing Lactated Ringer's 1,000 mls @ 100 mls/hr 11/26/20 20:45 11/27/20 06:24 Lr - Lactated Ringers Iv IV CONT 100 mls/hr .Q10H LAURA Administration Losartan Potassium 50 mg 11/27/20 09:00 11/28/20 08:44 Losartan Potassium 50 Mg Tablet PO 50 mg DAILY LAURA Administration Ondansetron HCl 4 mg 11/26/20 13:32 Ondansetron Inj 4 Mg/2 Ml Vial IV PUSH Q4H PRN Nausea Pantoprazole Sodium 40 mg 11/27/20 09:00 11/28/20 08:44 Pantoprazole 40 Mg Tablet PO 40 mg Q12HR LAURA Administration Sertraline HCl 100 mg 11/27/20 09:00 11/28/20 08:44 Sertraline Hcl 50 Mg Tablet PO 100 mg DAILY LAURA Administration Radiology Results: ITS Impressions
--- NOTE | 2020-11-28 11:02 | PM.DS ---
DS: Admitting Diagnosis Admitting Diagnosis Admitting Diagnosis: pancreatitis DS: Discharge Diagnosis Discharge Diagnosis (1) Acute pancreatitis: Code(s): K85.90 - Acute pancreatitis without necrosis or infection, unspecified Status: Acute Assessment and Plan: Lipase has improved today down to 365 from 17,215 on admission -CT of the abdomen pelvis does not show any pancreatic abnormalities -MRCP shows no stone but shows: 7 mm cystic lesion of the pancreatic body and communication with the main pancreatic duct. The differential diagnosis includes pseudocyst, intraductal papillary mucinous neoplasm (IPMN), mucinous cystic neoplasm (MCN), and the less common serous cystadenoma and neuroendocrine tumor. Correlate for history of pancreatitis. -She is going to follow up with Dr. Rosales about the above findings -patient's pain is much better and is tolerating a low fat diet -etiology likely idiopathic but could be due to cystic lesion. The patient also has been using an air Fryer since she got 1 for [employer] and has been eating fatty foods. She plans to change her diet -she does not drink alcohol and no medications that frequently cause pancreatitis is noted on her med list -she had cholecystectomy many years ago with no indication of stone on MRCP -follow-up with GI for pending labs such as JOSE etc. (2) Elevated liver enzymes: Code(s): R74.8 - Abnormal levels of other serum enzymes Status: Acute Assessment and Plan: Likely due to above and already improving -most the hepatitis panel is back and negative but awaiting hepatitis B results (send out) follow-up with Bobby -CT without abnormality -recheck liver enzymes in 2 weeks with results being sent to Dr. Rosales (3) Elevated serum creatinine: Code(s): R79.89 - Other specified abnormal findings of blood chemistry Status: Acute Assessment and Plan: Resolved (4) Abnormal CT of the abdomen: Code(s): R93.5 - Abnormal findings on diagnostic imaging of other abdominal regions, including retroperitoneum Status: Acute Assessment and Plan: Patient has probable lipoma or hemartoma of the breast on CT imaging. I went back to talk to her about this but was in MRI. -Last mamogram 12/02/19 without evidence of malignancy BIRAD 1 so she will likely have her next mammogram soon. She is going to have her follow-up mammogram soon (5) Hypertension: Code(s): I10 - Essential (primary) hypertension Status: Acute Assessment and Plan: Last bp 128/65 -continue losartan (6) Hyperlipidemia: Code(s): E78.5 - Hyperlipidemia, unspecified Status: Acute Assessment and Plan: continue statin -recheck liver enzymes outpt (7) Asthma: Qualifiers: Asthma complication type: unspecified Asthma persistence: unspecified Asthma severity: unspecified severity Qualified Code(s): J45.909 - Unspecified asthma, uncomplicated Code(s): J45.909 - Unspecified asthma, uncomplicated Status: Acute Assessment and Plan: No acute problems -albuterol available PRN DS: Summary Hospital Course Hospital Course: Patient is a 80-year-old female who has a past medical history hypertension and asthma who presented emergency room for epigastric pain. CT of the abdomen pelvis in the ER showed hernia in the right inguina area, possible enteritis, diverticulosis without evidence of diverticulitis, and probable lipoma of the right breast. CBC was within normal limits,, total bilirubin mildly elevated 1.7, liver enzymes significantly elevated AST 498 and ALT 279, and lipase 17,215. Patient was admitted to the hospitalist service and started on bowel rest and IV fluids. The patient improved with this very quickly. Her liver enzymes improved greatly discharge AST was 94 and ALT 147. As for an etiology, the patient's MRCP did not show any evidence of stone. She had a cholec
[2020-11-30 03:47] LABS: Hepatitis A Antibody Total Reactive (Nonreactive); Hepatitis B Core Ab Total Nonreactive (Nonreactive)
[2020-11-30 12:36] LABS: Vitamin D 1,25 (OH)2 Total 35 pg/mL (18-72); Vitamin D2 1,25 (OH)2 <8 pg/mL; Vitamin D3 1,25 (OH)2 35 pg/mL
--- NOTE | 2020-12-01 14:25 | PC.NURSE ---
spoke with friend that lives with patient regarding lab slip being mailed for outpatient labs. Friend states understanding.
[2020-12-01 17:16] LABS: Chromogranin A 112 ng/mL (25-140)
[2020-12-02 06:11] LABS: CA 19-9 41 U/mL (<34)
--- NOTE | 2020-12-04 10:47 | PC.NURSE ---
CA 19 elevated, JOSE positive. results faxed to Dr. Aguirre
== END 2020-11-28 11:20 | disposition home or self-care (01) | DRG 439 ==
LOC: ANHED 13:31 → ANH3MEDSUR 15:13
PROVIDERS: Emergency Medicine Emergency Medical Services; Internal Medicine Gastroenterology; Admitting Provider Family Medicine; Emergency Provider Emergency Medicine; PCP Family Medicine; Visit Provider Physician Assistant
DX: K85.90 Acute pancreatitis without necrosis or infection, unspecified (principal); K86.2 Cyst of pancreas; K40.90 Unilateral inguinal hernia, without obstruction or gangrene, not specified as recurrent; R74.8 Abnormal levels of other serum enzymes; R79.89 Other specified abnormal findings of blood chemistry; R93.5 Abnormal findings on diagnostic imaging of other abdominal regions, including retroperitoneum; I10 Essential (primary) hypertension; J45.909 Unspecified asthma, uncomplicated; E78.5 Hyperlipidemia, unspecified; Z79.899 Other long term (current) drug therapy; Z85.820 Personal history of malignant melanoma of skin; Z86.718 Personal history of other venous thrombosis and embolism; Z87.891 Personal history of nicotine dependence; Z90.49 Acquired absence of other specified parts of digestive tract; Z98.42 Cataract extraction status, left eye; Z98.41 Cataract extraction status, right eye
CPT/HCPCS: 36415; 71275; 74176; 74183; 76376; 80048; 80053; 80061; 80076; 81001; 82306; 82652; 83690; 83735; 83880; 84100; 84436; 84439; 84443; 84484; 85025; 85027; 85380; 85610; 85730; 86038; 86039; 86140; 86301; 86316; 86704; 86706; 86708; 87340; 93005; 93970; 96361; 96374; 96376; 99285; A9270; A9577; C9113; J7040; J7120; Q9967

== ENCOUNTER → 2021-07-14 15:18 | Outpatient (CLI) | payer MEDICARE, SELFPAY ==
--- NOTE | ~2021-07-14 | MM_ITS ---
EXAMINATION: MM screening [facility] BI w tami HISTORY: Screening mammogram TECHNIQUE: Craniocaudal and mediolateral oblique 3-D tomosynthesis images were obtained and synthetic 2-D images were generated. CAD analysis was submitted and interpreted. COMPARISON: 12/02/2019, 10/23/2018, 09/30/2017 BREAST PARENCHYMAL COMPOSITION: The breasts are almost entirely fatty. FINDINGS: Scattered benign-appearing calcifications are present. There is no evidence of suspicious m ass, calcification, or architectural distortion to suggest malignancy in either breast. There has bee n no suspicious interval change. IMPRESSION: 1. No mammographic evidence of malignancy. 2. Recommend routine screening mammography in one year. BI-RADS Category 2: Benign finding(s). Reviewed, dictated and finalized at location A.
== END ==
PROVIDERS: PCP Physician Assistant; Visit Provider Physician Assistant
DX: Z12.31 Encounter for screening mammogram for malignant neoplasm of breast (principal)
CPT/HCPCS: 77063; 77067

== ENCOUNTER 2023-03-01 12:04 | Outpatient (CLI) | payer MEDICARE, SELFPAY ==
--- NOTE | ~2023-03-01 | XR_ITS ---
Thoracic spine: Clinical Indication: Back pain AP and lateral views were performed. No fracture is seen. There is normal alignment of the vertebrae. The intervertebral disc spaces appe ar normal. Paravertebral soft tissues appear normal. Impression: No significant abnormalities noted. Reviewed, dictated and finalized at [facility]. Impression: No significant abnormalities noted.
== END 2023-03-01 12:05 ==
PROVIDERS: PCP Family Medicine; Visit Provider Family Medicine
DX: M54.6 Pain in thoracic spine (principal)
CPT/HCPCS: 72072

== ENCOUNTER → 2023-06-09 11:57 | Outpatient (CLI) | payer MEDICARE, SELFPAY ==
--- NOTE | ~2023-06-09 | MM_ITS ---
EXAMINATION: MM screening [facility] BI w tami HISTORY: Screening mammogram TECHNIQUE: Craniocaudal and mediolateral oblique 3-D tomosynthesis images were obtained and synthetic 2-D images were generated. CAD analysis was submitted and interpreted. COMPARISON: 07/14/2021, 10/01/2020 BREAST PARENCHYMAL COMPOSITION: The breasts are almost entirely fatty. FINDINGS: Scattered benign-appearing calcifications are present. No suspicious mass, calcification, o r architectural distortion are identified in either breast to suggest malignancy. There has been no s uspicious interval change. IMPRESSION: 1. No mammographic evidence of malignancy. 2. Recommend routine screening mammography while the patient remains in good health. BI-RADS Category 2: Benign finding(s). Reviewed, dictated and finalized at location B. IMPRESSION: 1. No mammographic evidence of malignancy. 2. Recommend routine screening mammography while the patient remains in good he alth. BI-RADS Category 2: Benign finding(s).
== END ==
PROVIDERS: PCP Physician Assistant; Visit Provider Physician Assistant
DX: Z12.31 Encounter for screening mammogram for malignant neoplasm of breast (principal)
CPT/HCPCS: 77063; 77067

== ENCOUNTER 2023-06-18 12:39 | Outpatient (CLI) | payer MEDICARE, SELFPAY ==
--- NOTE | ~2023-06-18 | MR_ITS ---
EXAMINATION: MR abdomen wo/w con DATE: 06/18/2023 13:24 INDICATION: Cystic lesion of the pancreas. Diarrhea. TECHNIQUE: Magnetic resonance imaging (MRI) of the abdomen was performed without and with 13 mL Multi El intravenous contrast. COMPARISON: Abdomen MRI 11/27/2020 FINDINGS: There is mild intrahepatic biliary duct dilatation, likely secondary to cholecystectomy. The common d uct is normal and measures 9 mm. 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 There is a 7 mm cystic lesion in the body of the pancreas with communication with the main pancreatic duct. The spleen and adrenal glands are normal. There are cysts in the kidneys measuring up to 2.6 cm on the left. There is divert iculosis of the colon without evidence of diverticulitis. There are no pathologically enlarged lymph nodes. There is no free intraperitoneal fluid. IMPRESSION: 1. 7 mm cystic lesion of the pancreas. The differential diagnosis includes pseudocyst, intraductal pa pillary mucinous neoplasm (IPMN), mucinous cystic neoplasm (MCN), serous cystadenoma, and neuroendocr ine tumor. Abdomen MRI without and with contrast is recommended in 2 years, but only if the patient w ould be a potential future surgical candidate. Reviewed, dictated and finalized at location A. IMPRESSION: 1. 7 mm cystic lesion of the pancreas. The differential diagnosis includes pseu docyst, intraductal papillary mucinous neoplasm (IPMN), mucinous cystic neoplas m (MCN), serous cystadenoma, and neuroendocrine tumor. Abdomen MRI without and with contrast is recommended in 2 years, but only if the patient would be a pot ential future surgical candidate.
== END 2023-06-18 12:40 | disposition home or self-care (01) ==
PROVIDERS: PCP Physician Assistant; Visit Provider Physician Assistant
DX: K86.9 Disease of pancreas, unspecified (principal)
CPT/HCPCS: 74183; A9577

== ENCOUNTER 2023-08-28 10:16 | Emergency (ER) | payer MEDICARE, SELFPAY ==
--- NOTE | ~2023-08-28 | XR_ITS ---
EXAMINATION: XR sacrum coccyx min 2V DATE: 08/28/2023 12:27 INDICATION: Tailbone pain post fall 3 weeks prior TECHNIQUE: Frontal, angled frontal and lateral views of the sacrum and coccyx were obtained. COMPARISON: CT abdomen pelvis dated 11/26/2020 FINDINGS: Bone alignment is normal. Sacral arches are intact. No fracture. Mild osteoarthritis at the bilateral hip and sacroiliac joints. Mild lumbar spondylosis. Calcified uterine fibroid at the central pelvis. IMPRESSION: 1. No acute osseous abnormality. 2. Consistent with calcified uterine fibroid. Reviewed, dictated and finalized at location A. SINKER APPRENTICE
[2023-08-28 10:20] VITALS: BP 155/58; PULSE 64; RESP 20; TEMP 36.7; O2SAT 100
--- NOTE | 2023-08-28 11:37 | ED.FALL ---
HPI - Fall General Chief Complaint: Fall Stated Complaint: fall, tailbone pain Time Seen by Provider: 08/28/23 10:50 Source: patient Mode of arrival: ambulatory Limitations: no limitations History of Present Illness HPI Narrative: Patient is an 83 y/o female who presents to the ED with c/o pain to her coccyx. Patient reports she fell 3 weeks ago and landed straight on her bottom. She states she had a dizzy episode at that time. She has frequent episodes of this and states her doctor is aware of this. She denies any further dizziness since the fall, denies dizziness currently. Denied HI or LOC in the fall. She has had some pain in her tailbone since the fall which has persisted. Friend recommended she come to the ED today. She has intermittently taken tylenol for her pain. Does not want anything currently. Denies numbness/tingling, bowel/bladder incontinence, fevers. Related Data Home Medications Medication Instructions Recorded Confirmed sertraline 100 mg tablet 100 mg PO DAILY 07/27/20 07/11/23 losartan 50 mg tablet 25 mg PO DAILY 07/11/23 07/11/23 sertraline 50 mg tablet 50 mg PO DAILY 07/11/23 07/11/23 Allergies Allergy/AdvReac Type Severity Reaction Status Date / Time codeine Allergy Mild RAPID Verified 08/28/23 10:53 HEART BEAT Review of Systems Review of Systems: CONSTITUTIONAL: Denies fever, chills, or sweats. CARDIOVASCULAR: Denies chest pain. RESPIRATORY: Denies dyspnea. GASTROINTESTINAL: Denies abdominal pain, nausea, vomiting. MUSCULOSKELETAL: See HPI. NEUROLOGIC: See HPI. All systems reviewed & are unremarkable except as noted in HPI and below PMFSH Past Medical History Medical History Anxiety disorder, unspecified Atherosclerosis of aorta Atherosclerotic heart disease of [place] coronary artery without angina pectoris Chronic kidney disease, stage 3 unspecified Diarrhea, unspecified Diverticula, colon History of skin cancer Hyperlipidemia Hypertensive chronic kidney disease with stage 1 through stage 4 chronic kidney disease, or unspecified chronic kidney disease Macular degeneration Obesity Osteoarthritis Surgical History Surgical History History of appendectomy History of arthroplasty of left knee 06/21/2017 History of bilateral cataract extraction History of cataract surgery right 02/08/2010 left 2009 History of colonoscopy Benign colon polyp, internal hemorrhoids, and diverticulosis coli noted on endoscopy on 05/28/[address] Rosales. History of laparoscopic cholecystectomy History of left breast biopsy With benign pathology. History of tonsillectomy Status post surgical removal of malignant neoplasm of skin Excision of melanoma from the left naris. Family History Family History Sibling Cancer Hypertension Father Peripheral vascular complication Social History Social History Social History: Patient is and lives in [place] with a friend. 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 No alcohol or illicit substance abuse. She designates her daughter, Thierno Yanez, as her surrogate decision maker and she wishes to be a full code. Smoking packs per day: 2 Smoking cigarettes per day: 40.0 Years smoked: 20 Smoking pack-years: 40.00 Smoking status: Former smoker Tobacco type: cigarettes Additional smoking assessment comments: started at age 20 and stopped age 40 Alcohol intake: never Substance use: never Lack of Transportation: YES Lack of Food: Never True Current Housing: I Have Housing Concerned About Future Housing: YES Difficulty Paying Gas/Electric Bills: No Difficulty Paying for Meds: No Currently Unemployed: YES Education: High School D
[2023-08-28 12:48] VITALS: BP 167/54; PULSE 60; RESP 14; O2SAT 100
== END 2023-08-28 13:05 | disposition home or self-care (01) ==
PROVIDERS: Emergency Provider Physician Assistant; PCP Physician Assistant
DX: M53.3 Sacrococcygeal disorders, not elsewhere classified (principal); F41.9 Anxiety disorder, unspecified; I12.9 Hypertensive chronic kidney disease with stage 1 through stage 4 chronic kidney disease, or unspecified chronic kidney disease; N18.30 Chronic kidney disease, stage 3 unspecified; M19.90 Unspecified osteoarthritis, unspecified site; E78.5 Hyperlipidemia, unspecified; I25.10 Atherosclerotic heart disease of native coronary artery without angina pectoris
CPT/HCPCS: 72220; 99283

== ENCOUNTER 2023-09-07 09:15 | Outpatient (CLI) | payer MEDICARE, SELFPAY ==
--- NOTE | ~2023-09-07 | NM_ITS ---
EXAMINATION: NM renata stress w perfusion DATE: 09/07/2023 13:09 INDICATION: Nonrheumatic aortic valve stenosis. TECHNIQUE: Rest images were obtained following intravenous administration of 9.7 mCi Tc99m tetrofosmi n (Myoview). The patient was infused intravenously with Lexiscan (regadenoson). Then, 30.7 mCi Tc99m tetrofosmin (Myoview) was administered intravenously, and stress images were obtained. Data was recon structed into short axis and horizontal and vertical long axis SPECT images. Gated SPECT images were also obtained. COMPARISON: CT abdomen and pelvis 11/26/2020 FINDINGS: There is no definite reversible or fixed perfusion abnormality to suggest ischemia or infar ction. There is no segmental wall motion abnormality. Left ventricular ejection fraction measures > 70%. IMPRESSION: 1. No definite ischemia or infarct. 2. Normal left ventricular ejection fraction measuring >70%. Reviewed, dictated and finalized at location A. CAL PHYSICS TEACHER
--- NOTE | 2023-09-07 09:29 | EST_ITS ---
Patient Info Name: Bindu Trujillo Age: 83 years : 1940 Gender: Female Ht: 60 in Wt: 146 lbs BSA: 1.70 m2 HR: 60 bpm BP: 186 / 74 mmHg Heart Rhythm: Right Bundle Branch Block Exam Date: 09/07/2023 11:53 AM Exam Location: Echo Lab Patient Status: Outpatient Admit Date: 09/07/2023 Staff Ordering Physician: Brandon Roberto DO Attending Provider: Brandon Roberto DO Exercise Technologist: Corinne Rocha CT Exercise Physician: Brandon Roberto DO Exam Type: CA stress renata w NM Study Info Indications R06.09 - Other forms of dyspnea A regadenoson stress test was performed. Summary 1. 1. Negative lexiscan stress test for ischemic ST changes by ECG criteria. 2. 2. Baseline hypertension. 3. 3. Nuclear scan to follow and will be reported separately. Please correlate with it. 4. 4. Patient informed of the above results. Protocol: Lexiscan Stress ECG Details Stage: REST Duration (min): 2 min : 29 sec HR (bpm): 60 SBP (mmHg): 186 DBP (mmHg): 74 Stage: REST Duration (min): 20 min : 57 sec HR (bpm): 61 SBP (mmHg): 186 DBP (mmHg): 74 Stage: STAGE 1 Duration (min): 1 min : 0 sec HR (bpm): 75 SBP (mmHg): 179 DBP (mmHg): 65 Stage: RECOVERY Duration (min): 1 min : 0 sec HR (bpm): 89 SBP (mmHg): 179 DBP (mmHg): 65 Stage: RECOVERY Duration (min): 2 min : 0 sec HR (bpm): 90 SBP (mmHg): 179 DBP (mmHg): 65 Stage: RECOVERY Duration (min): 3 min : 0 sec HR (bpm): 91 SBP (mmHg): 168 DBP (mmHg): 73 Stage: RECOVERY Duration (min): 4 min : 0 sec HR (bpm): 92 SBP (mmHg): 168 DBP (mmHg): 73 Stage: RECOVERY Duration (min): 5 min : 0 sec HR (bpm): 90 SBP (mmHg): 158 DBP (mmHg): 70 Stage: RECOVERY Duration (min): 5 min : 1 sec HR (bpm): 90 SBP (mmHg): 158 DBP (mmHg): 70 Rest HR: 61 bpm Peak HR: 93 bpm Rest Sys BP: 186 mmHg Peak Sys BP: 179 mmHg Max Pred HR: 137 bpm % Max Pred HR: 68 % Target HR: 116 bpm Max RPP: 16,647 bpm*mmHg Termination Reason: Completed protocol Cardiac Symptoms: Shortness of breath Total Time: 1 min : 0 sec Rest Hager BP: 74 mmHg Peak Hager BP: 65 mmHg Total Dose: 0.4 mg Resting ECG Sinus rhythm, RBBB. Stress ECG No ST changes. Arrhythmias None. Report Signatures
--- NOTE | 2023-09-07 09:30 | ECHO_ITS ---
Patient Info Name: Bindu Trujillo Age: 83 years : 1940 Gender: Female Ht: 69 in Wt: 147 lbs BSA: 1.80 m2 HR: 78 bpm BP: 148 / 67 mmHg Technical Quality: Fair Exam Date: 09/07/2023 10:01 AM Exam Location: Echo Lab Patient Status: Outpatient Admit Date: 09/07/2023 Staff Ordering Physician: Brandon Roberto DO Cath Lab Technologist: Chrissy López RDCS Attending Provider: Brandon Roberto DO Referring Physician: Pardeep HENDRICKSON; Exam Type: CA echo doppler color flow Study Info Indications - nonrheumatic aortic valve stenosis Complete two-dimensional, color flow and Doppler transthoracic echocardiogram is performed. Summary 1. Complete two-dimensional, color flow and Doppler transthoracic echocardiogram is performed. 2. Left ventricular chamber dimension is normal. 3. Left ventricular systolic function is normal, estimated at 65-70%. 4. The left ventricular diastolic function is grade I diastolic dysfunction. 5. E/e' 16 is elevated. 6. Global longitudinal strain is normal at -17.6%. 7. Left atrial chamber dimension is mildly enlarged. 8. There is severe aortic valve sclerosis. 9. There is moderate aortic valve stenosis with a peak velocity of 333 cm/s, mean gradient of 24 mmHg, and aortic valve area of 1.3 cm2. 10. There is trace aortic valve regurgitation. 11. The mitral valve has moderately calcified annulus. 12. There is trace tricuspid valve regurgitation. 13. No pulmonary hypertension, estimated pulmonary arterial systolic pressure is 21 mmHg. Left Ventricle E/e' 16 is elevated. Global longitudinal strain is normal at -17.6%. Left ventricular chamber dimension is normal. Left ventricular systolic function is normal, estimated at 65-70%. The left ventricular diastolic function is grade I diastolic dysfunction. Right Ventricle Right ventricular chamber dimension is normal. Right ventricular systolic function is normal. Left Atria Left atrial chamber dimension is mildly enlarged. Right Atria Right atrial chamber dimension is normal. Aortic Valve The aortic valve is probable trileaflet. There is severe aortic valve sclerosis. There is moderate aortic valve stenosis with a peak velocity of 333 cm/s, mean gradient of 24 mmHg, and aortic valve area of 1.3 cm2. There is trace aortic valve regurgitation. Pulmonic Valve There is no pulmonic regurgitation. Mitral Valve The mitral valve has moderately calcified annulus. There is no mitral valve stenosis. There is no mitral valve regurgitation. Tricuspid Valve There is trace tricuspid valve regurgitation. No pulmonary hypertension, estimated pulmonary arterial systolic pressure is 21 mmHg. Pericardium/Pleural There is no pericardial effusion. Inferior Vena Cava Normal inferior vena cava with >50% collapse upon inspiration consistent with normal right atrial pressure, 5 mmHg. Aorta The aortic root size at the sinus of Valsalva is normal. Left Ventricular Outflow Tract Name Value Normal LVOT 2D LVOT Diameter 2.0 cm LVOT Doppler LVOT Peak Gradient 6 mmHg LVOT Mean Gradient 4 mmHg LVOT VTI 30 cm LVOT VTI/AV VTI Ratio 0.4
== END 2023-09-07 09:16 | disposition home or self-care (01) ==
PROVIDERS: PCP Family Medicine; Visit Provider Internal Medicine Cardiovascular Disease
DX: I35.0 Nonrheumatic aortic (valve) stenosis (principal); R06.09 Other forms of dyspnea
CPT/HCPCS: 78452; 93017; 93306; A9502; J2785

== ENCOUNTER 2024-07-11 11:26 | Emergency (ER) | payer MEDICARE, SELFPAY ==
--- NOTE | ~2024-07-11 | CT_ITS ---
EXAMINATION: CTA chest PE protocol DATE: 07/11/2024 14:53 INDICATION: Pleuritic chest pain. Shortness of breath. TECHNIQUE: Computed tomography angiography (CTA) of the chest was performed with 100 mL Omnipaque-350 intravenous contrast timed to evaluate the pulmonary arteries. Coronal maximum intensity projection 3D-reconstructions were created by the technologist. Automated exposure control and iterative reconst ruction technique were employed. The dose-length product was 271.14 mGy-cm. COMPARISON: Chest CT 11/26/2020 FINDINGS: The lungs demonstrate mild atelectasis. No pleural effusion. The heart size is normal. Ther e are calcifications in the aortic valve. No pericardial effusion. There is no pulmonary embolus. The re are cysts in the kidneys measuring up to 2.8 cm on the left. Aortic atherosclerosis is noted. Ther e is chronic subcutaneous fat stranding in right anterior chest, consistent with fat necrosis. There is severe cervical spondylosis and mild thoracic spondylosis. IMPRESSION: 1. No pulmonary embolus. Reviewed, dictated and finalized at location A. IMPRESSION: 1. No pulmonary embolus.
--- NOTE | ~2024-07-11 | XR_ITS ---
EXAMINATION: XR chest 2V DATE: 07/11/2024 12:55 INDICATION: Chest pain TECHNIQUE: PA and lateral views of the chest were obtained. COMPARISON: Chest radiograph dated 05/26/2020 FINDINGS: Unchanged mild lingular linear discoid atelectasis/scarring at the lateral left lung base. No new air space opacities, pulmonary edema, pleural effusion or pneumothorax. The cardiomediastinal silhouette is normal. Mild thoracic kyphosis with mild to moderate thoracic spondylosis. IMPRESSION: 1. Chronic mild lingular discoid atelectasis/scarring. No acute cardiopulmonary disease. Reviewed, dictated and finalized at location A.
--- NOTE | 2024-07-11 11:27 | ECG_ITS ---
Test Date: 2024-07-11 11:33:59 Measurements Intervals [place] Rate: 64 P: 43 IN: 155 QRS: 43 QRSD: 128 T: 9 QT: 425 QTc: 441 Interpretive Statements SINUS RHYTHM RIGHT BUNDLE BRANCH BLOCK [120+ ms QRS DURATION, UPRIGHT V1, 40+ ms S IN I/aVL/V4/V5/V6] No previous ECG available for comparison Electronically Signed On 07-11-2024 12:31:06 CDT by Lennox Zendejas M.D.
[2024-07-11 11:37] VITALS: BP 166/59; PULSE 63; RESP 18; TEMP 36.4; O2SAT 100
[2024-07-11 11:57] LABS: Basophils Absolute Auto 0.1 K/mm3 (0.0-0.1); Eosinophils Absolute Auto 0.2 K/mm3 (0-0.3); Eosinophils Percent Auto 2.4 % (0-4.4); Hemoglobin 13.6 g/dL (12.0-15.0); Immature Granulocyte Absolute 0.01 K/mm3 (0.00-0.031); Immature Granulocyte Percent A 0.2 % (0-0.5); Lymphocytes Percent Auto 19.4 % (18.3-44.2); Mean Corpuscular HGB Conc 33.2 g/dl (32-36); Mean Corpuscular Hemoglobin 31.3 pg (26-34); Mean Corpuscular Volume 94.3 fl (80-100); Mean Platelet Volume 10.6 fl (7.4-10.4); Monocytes Absolute Auto 0.6 K/mm3 (0.1-0.6); Monocytes Percent Auto 9.1 % (2.6-8.5); Neutrophils Absolute Auto 4.2 K/mm3 (1.3-6.7); Neutrophils Percent Auto 67.9 % (45.5-73.1); Platelet Count Result 169 k/mm3 (150-375); Red Blood Count 4.35 M/mm3 (4.2-5.4); Red Cell Distribution Width 12.8 % (11.5-14.5); White Blood Count 6.2 K/mm3 (4.5-10.0)
[2024-07-11 12:04] VITALS: BP 157/61; PULSE 64; RESP 17; O2SAT 99
[2024-07-11 12:07] LABS: INR 1.1; Partial Thromboplastin Time 28.8 Seconds (22.3-36.8); Prothrombin Time 14.5 Seconds (11.1-14.7)
--- NOTE | 2024-07-11 13:12 | ED.CHESTPAIN ---
HPI - Chest Pain General Chief Complaint: Chest Pain Stated Complaint: chest pain Time Seen by Provider: 07/11/24 12:04 History of Present Illness HPI narrative: 84-year-old female with a history of hypertension, CKD, COPD presenting with chest pain. Patient states that for the last 5 or so days she has had left-sided chest pain that shoots into her back. It is worsened with taking a big breath. States that she does feel short of breath and she has had a bit of a cough. Family is at bedside and states that she had a syncopal episode several days ago. Patient states that she fainted and then was unable to get up for a while because of weakness. No nausea or vomiting, diarrhea, leg swelling. No fevers. No palpitations. No numbness or focal weakness. Related Data Allergies Allergy/AdvReac Type Severity Reaction Status Date / Time codeine Allergy Mild RAPID Verified 07/11/24 11:59 HEART BEAT Review of Systems Review of Systems: All systems reviewed & are unremarkable except as noted in HPI and below PMFSH Past Medical History Medical History Anxiety disorder, unspecified Atherosclerosis of aorta Atherosclerotic heart disease of [place] coronary artery without angina pectoris Chronic kidney disease, stage 3 unspecified Diarrhea, unspecified Diverticula, colon History of skin cancer Hyperlipidemia Hypertensive chronic kidney disease with stage 1 through stage 4 chronic kidney disease, or unspecified chronic kidney disease Macular degeneration Obesity Osteoarthritis Surgical History Surgical History History of appendectomy History of arthroplasty of left knee 06/21/2017 History of bilateral cataract extraction History of cataract surgery right 02/08/2010 left 2009 History of colonoscopy Benign colon polyp, internal hemorrhoids, and diverticulosis coli noted on endoscopy on 05/28/[address] Rosales. History of laparoscopic cholecystectomy History of left breast biopsy With benign pathology. History of tonsillectomy Status post surgical removal of malignant neoplasm of skin Excision of melanoma from the left naris. Family History Family History Sibling Cancer Hypertension Father Peripheral vascular complication Social History Social History Social History: Patient is and lives in [place] with a friend. 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 No alcohol or illicit substance abuse. She designates her daughter, Thierno Yanez, as her surrogate decision maker and she wishes to be a full code. Smoking packs per day: 2 Smoking cigarettes per day: 40.0 Years smoked: 20 Smoking pack-years: 40.00 Smoking status: Former smoker Tobacco type: cigarettes Additional smoking assessment comments: started at age 20 and stopped age 40 Alcohol intake: never Substance use: never Do You Feel Safe in your Home?: Yes Lack of Transportation: YES Lack of Food: Never True Current Housing: I Have Housing Concerned About Future Housing: YES Difficulty Paying Gas/Electric Bills: No Difficulty Paying for Meds: No Currently Unemployed: YES Education: High School Diploma/GED Difficulty w/ Childcare or Family Care: No Living arrangements: with friend(s) Occupation/Education: retired Gender identity (if verbalized by the patient): Female Sexual Orientation (if Verbalized by the Patient): Straight or Heterosexual Spiritual care concerns: No Exam Narrative: GENERAL: Well-appearing, in no acute distress, pleasant cooperative HEAD: Normocephalic, atraumatic. EYES: PERRLA and EOMI. ENT: Mucous membranes moist. NECK: Supple. CHEST: Clear to auscultation. No respiratory distress. HEART: Regular
[2024-07-11] MEDS: SODIUM CHLORIDE 0.9% IV 1,000 ML 999 ML IV CONT (13:41)
[2024-07-11 14:04] LABS: Influenza A QL RT-PCR Negative (Negative); Influenza B QL RT-PCR Negative (Negative); RSV RNA, RT-PCR Negative (Negative); SARS-CoV-2 RNA PCR Negative (Negative)
--- NOTE | 2024-07-11 14:22 | ECG_ITS ---
Test Date: 2024-07-11 15:13:26 Measurements Intervals [place] Rate: 70 P: 47 [place]: 152 QRS: 57 QRSD: 129 T: 17 QT: 444 QTc: 481 Interpretive Statements SINUS RHYTHM RIGHT BUNDLE BRANCH BLOCK [120+ ms QRS DURATION, UPRIGHT V1, 40+ ms S IN I/aVL/V4/V5/V6] Compared to ECG 07/11/2024 11:33:59 No significant changes Electronically Signed On 07-12-2024 10:36:35 CDT by Lennox Zendejas M.D.
[2024-07-11 14:23] LABS: Alanine Aminotransferase 15 U/L (6-35); Albumin Level 3.9 g/dL (3.5-5.1); Alkaline Phosphatase 54 U/L (38-126); Anion Gap 8 mmol/L (4-12); Aspartate Amino Transferase 29 U/L (14-36); Bilirubin,Total 0.6 mg/dL (0.2-1.3); Blood Urea Nitrogen 16 mg/dL (7-17); Calcium 9.4 mg/dL (8.4-10.2); Carbon Dioxide 26 mmol/L (22-30); Chloride 106 mmol/L (98-107); Estimated CRCL calculation 36 ml/min; Estimated Glomerular Filt Rate 53; Glucose 86 mg/dL (65-110); Lipase 143 U/L (23-300); Potassium 4.4 mmol/L (3.4-5.0); Sodium 140 mmol/L (137-145)
[2024-07-11 14:34] LABS: Troponin I 0.024 ng/mL (0.000-0.034)
[2024-07-11 14:45] LABS: Estimated CRCL calculation 36 ml/min; Estimated Glomerular Filt Rate 53
[2024-07-11 15:16] LABS: Troponin I 0.025 ng/mL (0.000-0.034)
[2024-07-11 15:47] VITALS: BP 175/90; PULSE 62; RESP 19; O2SAT 100
[2024-07-11 16:38] VITALS: BP 177/54; PULSE 61; RESP 15; TEMP 36.8; O2SAT 99
== END 2024-07-11 16:50 | disposition home or self-care (01) ==
PROVIDERS: Emergency Medicine; Emergency Provider Emergency Medicine; PCP Family Medicine
DX: R07.9 Chest pain, unspecified (principal); Z20.822 Contact with and (suspected) exposure to COVID-19; I12.9 Hypertensive chronic kidney disease with stage 1 through stage 4 chronic kidney disease, or unspecified chronic kidney disease; N18.30 Chronic kidney disease, stage 3 unspecified; I70.0 Atherosclerosis of aorta; E78.5 Hyperlipidemia, unspecified; E66.9 Obesity, unspecified; Z68.36 Body mass index [BMI] 36.0-36.9, adult; M19.90 Unspecified osteoarthritis, unspecified site; H35.30 Unspecified macular degeneration; Z96.652 Presence of left artificial knee joint; Z85.828 Personal history of other malignant neoplasm of skin; Z87.891 Personal history of nicotine dependence; Z98.42 Cataract extraction status, left eye; Z98.41 Cataract extraction status, right eye; Z90.49 Acquired absence of other specified parts of digestive tract; Z79.899 Other long term (current) drug therapy
CPT/HCPCS: 36415; 71046; 71275; 80053; 83690; 84484; 85025; 85610; 85730; 87637; 93005; 96360; 99284; J7030; Q9967

== ENCOUNTER 2025-01-30 14:38 | Outpatient (CLI) | payer MEDICARE, SELFPAY ==
--- NOTE | ~2025-01-30 | MR_ITS ---
EXAMINATION: MR abdomen wo/w con DATE: 01/30/2025 15:48 INDICATION: Cyst of the pancreas TECHNIQUE: Magnetic resonance imaging (MRI) of the abdomen was performed without and with 13 mL Multi eliza intravenous contrast. Sequences included coronal T2-weighted SS-FSE, coronal T2-weighted FS SS -FSE, coronal T2-weighted FS FIESTA, axial T2-weighted FS FIESTA, axial T2-weighted FIESTA, sagittal T2-weighted SS-FSE, axial T1-weighted dual-echo FSPGR, axial T2-weighted SS-FSE, axial T1-weighted LA VA, axial T2-weighted STIR FSE. Thick-slab T2-weighted FRFSE-XL images were obtained for magnetic res onance cholangiopancreatography (MRCP). Rotating maximum intensity projection 3-D reconstructions of the volumetric data were created by the technologist. Postcontrast sequences included a time course o f axial T1-weighted LAVA. COMPARISON: MR dated 06/18/2023 FINDINGS: Heart size is normal. No pericardial or pleural effusion. The common bile duct is mildly dilated sivan uring up to 8 mm diameter and there is mild intrahepatic biliary ductal dilation, both findings withi n normal limits post cholecystectomy. No evident stricture, choledocholithiasis or other obstructing masses. Liver is otherwise unremarkable. Spleen and bilateral adrenal glands are normal. Bilateral re nal parapelvic and parenchymal cysts, the largest on the left measuring 2.6 cm. No interval change in a 6 mm cystic lesion in the body the pancreas without evident solid enhancing component and which ap pears to communicate with the normal caliber main pancreatic duct. 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 Visualized bowels are unremarkable. No pathologically enlarged abdominal or upper pelvic ly mphadenopathy. Mild lumbar levocurvature with mild to moderate spondylosis. IMPRESSION: 1. No significant change in a 6 mm cystic lesion at the body the pancreas which communicates with the main pancreatic duct. If patient would remain a potential future surgical candidate consider additio nal 2 year follow-up pre and postcontrast MRI. Reviewed, dictated and finalized at location A. IMPRESSION: 1. No significant change in a 6 mm cystic lesion at the body the pancreas which communicates with the main pancreatic duct. If patient would remain a potentia l future surgical candidate consider additional 2 year follow-up pre and postco ntrast MRI.
--- OUTSIDE RECORDS SUMMARY | 2025-01-30 15:52 | XMS_ITS | Clinical Summary ---
Author Organization [facility] Address [address] [address] Phone Care Team Providers Care Director Of Vital Statistics Name Role Phone Heavenly Sarabia Primary Care Provider [phone] Allergies No known active allergies Medications losartan (COZAAR) 50 MG Tablet 04/07/2020 Active sertraline (ZOLOFT) 100 MG Tablet 04/29/2020 Active pravastatin (PRAVACHOL) 80 MG Tablet 04/29/2020 Active LORazepam (ATIVAN) 0.5 MG Tablet TK ONE T PO PRN NO MORE THAN ONCE A DAY 01/27/2020 Active pantoprazole (PROTONIX) 40 MG Tablet Delayed Response TK 1 T PO D 01/10/2020 Active indapamide (LOZOL) 1.25 MG Tablet TK 1 T PO QD IN THE MORNING 01/27/2020 Active Active Problems No known active problems Family History Medical History Relation Name Comments Cancer Brother Relation Name Status Comments Brother Social History Tobacco Use Types Packs/Day Years Used Date Smoking Tobacco: Never Smokeless Tobacco: Never Tobacco Cessation:Counseling Given: No Alcohol Use Standard Drinks/Week Comments Not Currently 0 (1 standard drink = 0.6 oz pur e alcohol) Comments No Sex and Gender Information Value Date Recorded Sex Assigned at Not on file Legal Sex Female 11:51 PM CDT Gender Identity Not on file Sexual Orientation Not on file Last Filed Vital Signs Vital Sign Reading Time Taken Comments Blood Pressure 140/68 05/08/2020 1:02 PM CDT Pulse 63 05/08/2020 1:02 PM CDT Temperature 36.7 C (98 F) 05/08/2020 1:02 PM CDT Respiratory Rate 16 05/08/2020 1:02 PM CDT Oxygen Saturation 97% 05/08/2020 1:02 PM CDT Inhaled Oxygen Concentration - - Weight 71.7 kg (158 lb) 05/08/2020 1:02 PM CDT Height 152.4 cm (5') 05/08/2020 1:02 PM CDT Body Mass Index 30.86 05/08/2020 1:02 PM CDT Plan of Treatment Health Maintenance Due Date Last Done Comments Hepatitis C Virus (HCV) Screening 1940 Cologuard 1990 Immunochemical Fecal Occult Blood 1990 Pneumococcal Immunization (50+ years) (1 of 1 - PCV) 1990 Zoster Immunization (1 of 2) 1990 Respiratory Syncytial Virus (RSV) Immunization (Adult) (1 - 1-dose 75+ series) 2015 Influenza Immunization (#1) 2024 11/0 04/2019, 02/08/2019, 07/30/2018, Additional history exists SARS-COV-2 Immunization ( season) 2024 04/22/2022, 08/28/2021, 12/07/2020, Additional history exists Colonoscopy High Risk 06/01/2025 06/01/2020 Colorectal Cancer Screening 06/01/2025 Colonoscopy 06/01/2030 06/01/2020 DTaP/Tdap/Td Immunization Discontinued 02/15/2017 TdaP Immunization Completed 02/15/2017 Hepatitis B Immunization Aged Out No longer eligible based on patient's age to complete this topic Meningococcal Immunization (ACWY) Aged Out No longer eligible based on patient's age to complete this topic Rotavirus Immunization Aged Out No lo nger eligible based on patient's age to complete this topic Procedures Procedure Name Priority Date/Time Associated Diagnosis Comments COLONOSCOPY Routine 06/01/2020 from Last 3 Months or Most Recently Relevant to Health Maintenance Results * COLONOSCOPY (06/01/2020) Carloz Laura Klranulfo DO PROCEDURE/MINOR SURGICAL ORDERA BLES Final Result from Last 3 Months or Most Recently Relevant to Health Maintenance Insurance MEDICARE C [employer] on file Care Teams Director Of Vital Statistics Relationship Specialty Start Date End Date Heavenly Sarabia PA [address] [place] [id number] PCP - General Physician Dance Studio Manager 05/04/20
--- OUTSIDE RECORDS SUMMARY | 2025-01-30 15:52 | XMS_ITS | Clinical Summary ---
Author Organization [facility] [place] [address] Address [address] [place] [address] Care Team Providers Care Sprue Knocker Name Role Phone Mayur Aguirre MD Primary Care Provider Allergies No known active allergies Medications losartan (COZAAR) 50 mg tablet 08/14/2022 Active pravastatin (PRAVACHOL) 80 mg tablet 06/06/2022 Active sertraline (ZOLOFT) 100 mg tablet 08/14/2022 Active memantine (NAMENDA) 10 mg tablet Take 1 tablet (10 mg total) by mouth 06/17/2024 Active Active Problems Problem Noted Date Diagnosed Date Peripheral vertigo 08/05/2024 Sensorineural hearing loss (SNHL) of both ears 1 Surgical History Surgery Date Site/Laterality Comments REPLACEMENT TOTAL KNEE Medical History Medical History Date Comments Asthma Anxiety Hypertension Dizziness Family History Medical History Relation Name Comments No Known Problems Father No Known Problems Mother Relation Name Status Comments Father Mother Social History Tobacco Use Types Packs/Day Years Used Date Smoking Tobacco: Former Cigarettes Q uit: 1979 Tobacco Cessation:Counseling Given: Not Answered Personal Safety Answer Date Recorded Getting School Help Needed Not on file 10/12 Comments Unknown Sex and Gender Information Value Date Recorded Sex Assigned at Not on file Legal Sex Female 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 Gender Identity Not on file Sexual Orientation Not on file Obstetrics History Last Filed Vital Signs Vital Sign Reading Time Taken Comments Blood Pressure - - Pulse - - Temperature - - Respiratory Rate 18 08/05/2024 2:20 PM CDT Oxygen Saturation - - Inhaled Oxygen Concentration - - Weight 64.9 kg (143 lb) 08/05/2024 2:20 PM CDT Height 152.4 cm (5') 08/05/2024 2:20 PM CDT Body Mass Index 27.93 08/05/2024 2:20 PM CDT Plan of Treatment Health Maintenance Due Date Last Done Comments Depression Screening 1940 Fall Risk Assessment 1940 Osteoporosis Screening-Bone Density Scan 1940 Hepatitis B Screening 1958 Pneumococcal vaccine 65+ (1 of 1 - PCV) 1990 Zoster Vaccine (1 of 2) 1990 Well Visit 65+ 2005 Covid-19 Vaccine (5 - 2023-2 5 season) 2024 04/22/2022, 08/28/2021, 12/07/2020, Additional history exists Influenza Vaccine (#1) 2024 , 07/09/2020, 08/15/2019, Additional history exists DTaP/Tdap/Td Vaccine (2 - Td or Tdap) 02/15/2027 02/15/2017 Insurance [facility] MEDIC[facility] Address: [facility] [address] [place] [address] [facility] Address: [facility] [address] [place] [address] Care Teams Sprue Knocker Relationship Specialty Start Date End Date Mayur Aguirre MD [address] [place] [id number] PCP - General Family Medicine 01/17/19
--- OUTSIDE RECORDS SUMMARY | 2025-01-30 15:52 | XMS_ITS | Referral Summary ---
Author Organization [facility] [address] Address [address] [place] [address] Care Team Providers Care Loading Machine Operator Helper Name Role Phone Mayur Aguirre MD Primary Care Provider [phone] Allergies No known active allergies Medications losartan (COZAAR) 50 mg tablet 08/14/2022 Active pravastatin (PRAVACHOL) 80 mg tablet 06/06/2022 Active sertraline (ZOLOFT) 100 mg tablet 08/14/2022 Active memantine (NAMENDA) 10 mg tablet Take 1 tablet (10 mg total) by mouth 06/17/2024 Active Active Problems Problem Noted Date Diagnosed Date Peripheral vertigo 08/05/2024 Sensorineural hearing loss (SNHL) of both ears 1 Social History Tobacco Use Types Packs/Day Years Used Date Smoking Tobacco: Former Cigarettes Q uit: 1980 Tobacco Cessation:Counseling Given: Not Answered Personal Safety Answer Date Recorded Getting School Help Needed Not on file 10/12 Comments Unknown Sex and Gender Information Value Date Recorded Sex Assigned at Not on file Legal Sex Female 5:37 PM LEVER MILLER Gender Identity Not on file Sexual Orientation [...] 08/05/2024 2:20 PM CDT Plan of Treatment Not on file Insurance [facility] MDCR HMO REF [facility] MEDICARE ADVANTAGE [place] [id number] Care Teams Loading Machine Operator Helper Relationship Specialty Start Date End Date Mayur Aguirre MD [address] [place] [id number] PCP - General Family Medicine 01/17/19
--- OUTSIDE RECORDS SUMMARY | 2025-01-30 15:52 | XMS_ITS | Continuity of Care Document ---
Author Organization [facility] Address [address] [place] [address] Phone Care Team Providers Care Credit Collections Analyst Name Role Phone Kiran Davies Unavailable Unavailable Advance Directives Directive Yes / No Effective Date File Name No Information Encounters Encounter Description Practice Location Reason(s) For Visit Diagnoses Date Provider Providers Copied on Encounter [facility], [address], [place], [place], [id number], [place] tel:[phone] [facility] No Information Jan-2 8-200 0 Doisy Edward. [address] , [address], [place], [address], [place]. tel:[phone] Family History Family Member Type Diagnosis Age At Onset No Information Payers Payer name Insurance type Covered democrat ID Authoriza tion(s) No Information Social History Type Description Quantity Date Captured Comments Sex Female Smoking Status No Information Chief Complaint And Reason For Visit No Information Reason For Referral Reason For Referral No Information History Of Present Illness Encounter Date Complaint History Of Prese nt Illness No Information Functional Status Date Functional Assessmen t No Information Instructions Date Instruction Additional Infor mation No Information Assessments Type Assessment Date No Information Patient Care Teams Name Effective Dates (start - stop) Status Members No Information
--- OUTSIDE RECORDS SUMMARY | 2025-01-30 15:52 | XMS_ITS | Clinical Summary ---
Author Organization [facility] Address [address] [place] [address] Care Team Providers Care Histology Teacher Name Role Phone Unavailable Primary Care Provider Unavailabl e Source Comments [facility],non-owned Affiliates and Associated Physician Practices is amultiple site organization consisting of ambulatory clinics and hospital sitesin [place], [place] and [place]. This disclosure is being madepursuant to the Care Everywhere program and may not contain all information available regarding this patient. Last updated 18.[facility] Social History Tobacco Use Types Packs/Day Years Used Date Smoking Tobacco: Never Assessed Comments Unknown Sex and Gender Information Value Date Recorded Sex Assigned at Not on file Legal Sex Female 4:13 PM CDT Gender Identity Not on file Sexual Orientation Not on file Plan of Treatment Health Maintenance Due Date Last Done Comments BONE DENSITY TESTING 1940 DTAP/TDAP/TD VACCINES (1 - Tdap) 1959 PNEUMOCOCCAL VACCINE 50+ (1 of 1 - PCV) 1990 ZOSTER VACCINE (1 of 2) 1990 Respiratory Syncytial Virus (RSV) Vaccine Pt: or over 60 yrs (1 - 1-dose 75+ series) 2015 COVID-19 VACCINE ( - 2023-2 5 season) 2024 DEPRESSION SCREENING 10/09/2024 INFLUENZA VACCINE (Season Ended) 2025 HEPATITIS B VACCINE Aged Out No longe r eligible based on patient's age to complete this topic HIB VACCINE Aged Out No longer eligi ble based on patient's age to complete this topic HPV VACCINE Aged Out No longer eligi ble based on patient's age to complete this topic MENINGOCOCCAL (Group B) VACC INE SHARED DECISION-MAKING Aged Out No longer eligibl e based on patient's age to complete this topic MENINGOCOCCAL GROUPS A/C/Y/W VACCINE Aged Out No longer eligible b ased on patient's age to complete this topic Insurance [facility] [place] [id number]
== END 2025-01-30 14:39 | disposition home or self-care (01) ==
PROVIDERS: PCP Family Medicine
DX: K86.2 Cyst of pancreas (principal)
CPT/HCPCS: 74183; A9577

== ENCOUNTER 2025-02-03 01:41 | Day surgery (SDC) | payer MEDICARE, SELFPAY ==
[2025-01-27 10:29] VITALS: BMI 27.3
--- OUTSIDE RECORDS SUMMARY | 2025-02-03 01:43 | XMS_ITS | Clinical Summary ---
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
--- OUTSIDE RECORDS SUMMARY | 2025-02-03 01:43 | XMS_ITS | Clinical Summary ---
Author Organization [facility] Address [address] [place] [address] Care Team Providers Care Regional Extension Service Specialist Name Role Phone Unavailable Primary Care Provider Unavailabl e Source Comments [facility],non-owned Affiliates and Associated Physician Practices is amultiple site organization consisting of ambulatory clinics and hospital sitesin [place], [place], [place] and [place]. This disclosure is being madepursuant to the Care Everywhere program and may not contain all information available regarding this patient. Last updated 18.[facility] [employer] Social History Tobacco Use Types Packs/Day Years [...] patient's age to complete this topic Insurance [facility] [place] [id number]
--- OUTSIDE RECORDS SUMMARY | 2025-02-03 01:43 | XMS_ITS | Continuity of Care Document ---
Author Organization [facility] Address [address] [place] [address] Phone Care Team Providers Care Therapeutic Riding Instructor Name Role Phone Kiran Davies Unavailable Unavailable Advance Directives Directive Yes / No Effective Date File Name No Information Encounters Encounter Description Practice Location Reason(s) For Visit Diagnoses Date Provider Providers Copied on Encounter [facility], [address], [place], [place], [id number], [place] tel:[phone] [facility] No Information Jan-2 8-200 0 Doisy Edward. [address] , [address], [place], [address], [place]. tel:[phone] Family History Family Member Type Diagnosis Age At Onset No Information Payers Payer name Insurance type Covered libertarian ID Authoriza tion(s) No Information Social History [...]
--- OUTSIDE RECORDS SUMMARY | 2025-02-03 01:43 | XMS_ITS | Referral Summary ---
Author Organization [facility] [place] [address] Address [address] [place] [address] Care Team Providers Care Local Intermodal Truck Driver Name Role Phone Mayur Aguirre MD Primary Care Provider [phone] Allergies No known active allergies Medications losartan [...] on file Legal Sex Female 5:37 PM CHAIR MENDER Gender Identity Not on file Sexual Orientation [...] Plan of Treatment Not on file Insurance [facility] MDCR HMO REF [facility] MEDICARE ADVANTAGE [place] [id number] Care Teams Local Intermodal Truck Driver Relationship Specialty Start Date End Date Mayur Aguirre MD [address] [place] [phone] PCP - General Family Medicine 01/17/19
[2025-02-03 10:06] VITALS: BP 127/58; PULSE 86; RESP 18; TEMP 36.6; O2SAT 93
[2025-02-03] MEDS: LACTATED RINGERS 1,000 ML 150 ML IV CONT (10:20)
--- NOTE | 2025-02-03 11:01 | PM.HPGS ---
History of Present Illness History of Present Illness Consent: Risks, benefits, and alternatives have been discussed and questions answered. Patient agrees to proceed with procedure. Chief complaint: Diarrhea,abnormal weight loss Narrative: Bindu Trujillo is a 84 year old female with alternating diarrhea and constipation, recently lost about 10 lb, last colonoscopy years ago Review of Systems Review of Systems: All systems reviewed & are unremarkable except as noted in HPI and below PMFSH Past Medical History Medical History (Updated 02/03/25 @ 11:02 by Dale Lopez MD) Alternating constipation and diarrhea Weight loss BPPV (benign paroxysmal positional vertigo) Memory loss History of skin cancer Anxiety disorder, unspecified Diarrhea, unspecified Chronic kidney disease, stage 3 unspecified Hypertensive chronic kidney disease with stage 1 through stage 4 chronic kidney disease, or unspecified chronic kidney disease Atherosclerosis of aorta Atherosclerotic heart disease of [place] coronary artery without angina pectoris Obesity Macular degeneration Osteoarthritis Diverticula, colon Hyperlipidemia Surgical History Surgical History History of cataract surgery right 02/08/2010 left 2009 History of tonsillectomy History of arthroplasty of left knee 06/21/2017 History of left breast biopsy With benign pathology. 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 History of colonoscopy Benign colon polyp, internal hemorrhoids, and diverticulosis coli noted on endoscopy on 05/28/[address] Rosales. History of laparoscopic cholecystectomy History of appendectomy History of bilateral cataract extraction Family History Family History Sibling Cancer Hypertension Father Peripheral vascular complication Social History Social History (Reviewed 11/19/24 @ 14:42 by Paradise Jay [facility]) Social History: Patient is and lives in [place] with a friend. 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 No alcohol or illicit substance abuse. She designates her daughter, Thierno Yanez, as her surrogate decision maker and she wishes to be a full code. Smoking packs per day: 2 Smoking cigarettes per day: 40.0 Years smoked: 20 Smoking pack-years: 40.00 Smoking status: Former smoker Tobacco type: cigarettes Additional smoking assessment comments: started at age 20 and stopped age 40 Alcohol intake: never Substance use: never Substance use type: does not use Do You Feel Safe in your Home?: Yes Lack of Transportation: YES Lack of Food: Never True Current Housing: I Have Housing Concerned About Future Housing: YES Difficulty Paying Gas/Electric Bills: No Difficulty Paying for Meds: No Currently Unemployed: YES Education: High School Diploma/GED Difficulty w/ Childcare or Family Care: No Living arrangements: with friend(s) Occupation/Education: retired Gender identity (if verbalized by the patient): Female Sexual Orientation (if Verbalized by the Patient): Straight or Heterosexual Spiritual care concerns: No Meds Home Medications and Allergies Home Medications ?Medication ?Instructions ?Recorded ?Confirmed ?Type ascorbic acid (vitamin C) 1,000 mg 1 g PO DAILY #90 caps 12/02/22 02/03/25 Rx capsule calcium 600 mg (as 1 cap PO DAILY #90 caps 12/02/22 02/03/25 Rx carbonate)-vitamin D3 25 mcg (1,000 unit) capsule cholecalciferol (vitamin D3) 25 25 mcg PO DAILY #90 caps 12/02/22 02/03/25 Rx mcg (1,000 unit) capsule meclizine 25 mg tablet See Rx Instructions .Route 03/05/24 01/27/25 Rx .COMPLEX #20 tabs diclofenac sodium 75 mg See Rx Instructions .Route 03/09/24 01/27/25 Rx tablet,delayed release .COMPLEX #100 tabs hydroxyzine HCl 25 mg tablet 25 mg PO TID PRN anxiety #30 tabs 04/15/24 01/27/25 Rx sertraline 100 mg tablet See Rx Instructions .Route 01/13/25 02/03/25 Rx .COMPLEX #90 tabs losartan 50 mg tablet See Rx Instructions .Route 01/14/25 02/03/25 Rx .COMPLEX #100 tabs albuterol sulfate 90 mcg/actuation 1 - 2 inh inhalation Q4-6H PRN 01/15/25 01/27/25 Rx aerosol inhaler shortness of breath or wheezing 90 days #51 grams memantine 5 mg tablet See Rx Instructions .Route 01/15/25 02/03/25 Rx .COMPLEX #100 tabs memantine 10 mg tablet See Rx Instructions .Route .COMPLEX 01/27/25 02/03/25 History Allergies Allergy/AdvReac Type Severity Reaction Status Date / Time codeine Allergy Mild RAPID Verified 01/27/25 10:25 HEART BEAT Vital Signs Vital Signs - 24 hr 02/03/25 10:06 Temperature 97.9 F Pulse Rate 86 Respiratory Rate 18 Blood Pressure 127/58 L Pulse Oximetry 93 Oxygen Delivery Room Air Exam Const: General: comfortable and no acute distress HENMT: Face/Nose/Sinus: Normal nares present Eyes: General: appearance normal, both eyes and all related structures Neck: Neck: no JVD Resp: Auscultation: clear to auscultation bilaterally Cardio: Rate: regular rate Rhythm: regular rhythm GI: Inspection: non-distended GI Palp: Yes Soft to palpation Skin: General skin exam: normal color Neuro: Speech: normal speech Extrem: General: normal to inspection Psych: Mental Status: mental status grossly normal Assessment and Plan Assessment and plan (1) Weight loss: Code(s): R63.4 - Abnormal weight loss Status: Acute Assessment and Plan: colonoscopy (2) Alternating constipation and diarrhea: Code(s): R19.8 - Other specified symptoms and signs involving the digestive system and abdomen Status: Acute
--- NOTE | 2025-02-03 11:06 | P.PNAN_ITS ---
Anes - Initial Pre Proc Eval Procedure: Operation Date: 02/03/25 11:30 Proposed Procedures p Colonoscopy - Dale Lopez MD Date/Time: 02/03/25 11:06 Surgeon: Dale Lopez MD Pre Op Diagnosis: Diarrhea,abnormal weight loss Patient Data Age: 84 Gender: F Height: 1.5 m Weight: 61.3 kg Last Vital Signs Temp 97.9 F 02/03/25 10:06 Pulse 86 02/03/25 10:06 Resp 18 02/03/25 10:06 BP 127/58 L 02/03/25 10:06 Pulse Ox 93 02/03/25 10:06 O2 Del Method Room Air 02/03/25 10:06 Allergies Allergy/AdvReac Type Severity Reaction Status Date / Time codeine Allergy Mild RAPID Verified 01/27/25 10:25 HEART BEAT Home Medications ?Medication ?Instructions ?Recorded ?Confirmed ?Type ascorbic acid (vitamin C) 1,000 mg 1 g PO DAILY #90 caps 12/02/22 02/03/25 Rx capsule calcium 600 mg (as 1 cap PO DAILY #90 caps 12/02/22 02/03/25 Rx carbonate)-vitamin D3 25 mcg (1,000 unit) capsule cholecalciferol (vitamin D3) 25 25 mcg PO DAILY #90 caps 12/02/22 02/03/25 Rx mcg (1,000 unit) capsule meclizine 25 mg tablet See Rx Instructions .Route 03/05/24 01/27/25 Rx .COMPLEX #20 tabs diclofenac sodium 75 mg See Rx Instructions .Route 03/09/24 01/27/25 Rx tablet,delayed release .COMPLEX #100 tabs hydroxyzine HCl 25 mg tablet 25 mg PO TID PRN anxiety #30 tabs 04/15/24 01/27/25 Rx sertraline 100 mg tablet See Rx Instructions .Route 01/13/25 02/03/25 Rx .COMPLEX #90 tabs losartan 50 mg tablet See Rx Instructions .Route 01/14/25 02/03/25 Rx .COMPLEX #100 tabs albuterol sulfate 90 mcg/actuation 1 - 2 inh inhalation Q4-6H PRN 01/15/25 01/27/25 Rx aerosol inhaler shortness of breath or wheezing 90 days #51 grams memantine 5 mg tablet See Rx Instructions .Route 01/15/25 02/03/25 Rx .COMPLEX #100 tabs memantine 10 mg tablet See Rx Instructions .Route .COMPLEX 01/27/25 02/03/25 History Patient hx anesthesia problems: none Family hx anesthesia problems: none Results Review: All pre-operative results and documents have been reviewed as part of the pre- operative evaluation. [facility] Past Medical History Medical History Alternating constipation and diarrhea Weight loss BPPV (benign paroxysmal positional vertigo) Memory loss History of skin cancer Anxiety disorder, unspecified Diarrhea, unspecified Chronic kidney disease, stage 3 unspecified Hypertensive chronic kidney disease with stage 1 through stage 4 chronic kidney disease, or unspecified chronic kidney disease Atherosclerosis of aorta Atherosclerotic heart disease of [place] coronary artery without angina pectoris Obesity Macular degeneration Osteoarthritis Diverticula, colon Hyperlipidemia Surgical History Surgical History History of cataract surgery right 02/08/2010 left 2009 History of tonsillectomy History of arthroplasty of left knee 06/21/2017 History of left breast biopsy With benign pathology. 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 History of colonoscopy Benign colon polyp, internal hemorrhoids, and diverticulosis coli noted on endoscopy on 05/28/[address] Rosales. History of laparoscopic cholecystectomy History of appendectomy History of bilateral cataract extraction Family History Family History Sibling Cancer Hypertension Father Peripheral vascular complication Social History Social History Social History: Patient is and lives in [place] with a friend. 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 No alcohol or illicit substance abuse. She designates her daughter, Thierno Yanez, as her surrogate decision maker and she wishes to be a full code. Smoking packs per day: 2 Smoking cigarettes per day: 40.0 Years smoked: 20 Smoking pack-years: 40.00 Smoking status: Former smoker Tobacco type: cigarettes Additional smoking assessment comments: started at age 20 and stopped age 40 Alcohol intake: never Substance use: never Substance use type: does not use Do You Feel Safe in your Home?: Yes Lack of Transportation: YES Lack of Food: Never True Current Housing: I Have Housing Concerned About Future Housing: YES Difficulty Paying Gas/Electric Bills: No Difficulty Paying for Meds: No Currently Unemployed: YES Education: High School Diploma/GED Difficulty w/ Childcare or Family Care: No Living arrangements: with friend(s) Occupation/Education: retired Gender identity (if verbalized by the patient): Female Sexual Orientation (if Verbalized by the Patient): Straight or Heterosexual Spiritual care concerns: No Anes - Eval Final PreProcedure Day of Procedure 02/03/25 11:06 Patient weight: normal Lungs: normal air movement Airway: Mallampati scale class II Neurological: alert and oriented Last oral intake: >/= 8 hours ASA classification: III Emergent: no Anesthetic plan: proceed Anesthesia type and monitoring: general ETT and standard monitoring Results Review: All pre-operative results and documents have been reviewed as part of the pre- operative evaluation. Mild type asthma, HTN, hx of memory loss. Mod by ECHO 2022. Informed Consent: The patient's anesthetic plan and its attendant risks and benefits were discussed with the patient/family/POA. Questions were solicited and answers provided to the satisfaction of the patient/family/POA.
[2025-02-03 11:21] VITALS: BP 106/54; PULSE 71; RESP 18; O2SAT 98
[2025-02-03 11:31] VITALS: BP 130/63; PULSE 72; RESP 18; O2SAT 100
[2025-02-03 11:41] VITALS: BP 131/56; PULSE 68; RESP 18; O2SAT 100
== END 2025-02-03 11:53 | disposition home or self-care (01) ==
PROVIDERS: PCP Family Medicine; Visit Provider Internal Medicine Gastroenterology
PROC: 0DJD8ZZ Inspection of Lower Intestinal Tract, Via Natural or Artificial Opening Endoscopic (ICD-10-PCS; CPT 45378; principal; 2025-02-03 11:30)
DX: R19.7 Diarrhea, unspecified (principal); R63.4 Abnormal weight loss; K59.00 Constipation, unspecified; K57.30 Diverticulosis of large intestine without perforation or abscess without bleeding; K64.8 Other hemorrhoids; N18.30 Chronic kidney disease, stage 3 unspecified; I12.9 Hypertensive chronic kidney disease with stage 1 through stage 4 chronic kidney disease, or unspecified chronic kidney disease; E78.5 Hyperlipidemia, unspecified; Z87.891 Personal history of nicotine dependence
CPT/HCPCS: 45380; 88305; J2003; J2704; J7120